=== PATIENT | female | born 1950 | race Caucasian/White ===

== ENCOUNTER 2016-11-07 15:07 | Emergency (ER) ==
[2016-11-07 15:11] VITALS: BP 200/83; TEMP 96.3; BMI 31.5
--- NOTE | 2016-11-07 17:42 | ED.PDOC ---
General ED Provider: Dr. ANN VILLANUEVA Chief Complaint: Fall Stated Complaint: ANKLE PAIN , FOOT PAIN KNEE PAIN LEFT SIDED Time Seen by Physician: 15:10 Mode of Arrival: Walk-In Information Source: Patient Exam Limitations: No limitations Primary Care Provider: SANDI PRINCE Nursing and Triage Documentation Reviewed and Agree: Yes Musculoskeletal Complaint Exam - Lower Extremity Complaint/Exam Location of Pain: Reports: Left, Ankle (, FOOT AND ), Knee Mechanism of Injury: Reports: Trauma (FALL STANDING POSTION) Onset/Duration: 3 DAYS AGO Symptoms Are: Still present Initial Severity: Mild Current Severity: Mild Location: Reports: Diffuse Character: Reports: Dull, Aching Alleviating: Reports: None Aggravating: Reports: None Able to Bear Weight: Yes Associated Signs and Symptoms: Denies: Swelling, Redness, Bruising, Fever, Weakness, Numbness, Tingling Related History: Reports: Similar episode DVT Risk Factors: Reports: None Septic Arthritis Risk Factors: Reports: None Related Surgical History: Reports: None NV Bundle Intact Distal to Injury: No Differential Diagnoses: Arthritis, Fracture, Strain, Sprain Review of Systems - Review Of Systems Constitutional: Reports: No symptoms Eyes: Reports: No symptoms Ears, Nose, Mouth, Throat: Reports: No symptoms Respiratory: Reports: Cough, Wheezing Cardiac: Reports: No symptoms GI: Reports: No symptoms : Reports: No symptoms Musculoskeletal: Reports: No symptoms Skin: Reports: No symptoms Neurological: Reports: No symptoms Endocrine: Reports: No symptoms Hematologic/Lymphatic: Reports: No symptoms All Other Systems: Reviewed and Negative Past Medical History - Past Medical History Previously Healthy: Yes Endocrine: Reports: None, Hyperthyroid Cardiovascular: Reports: None, CAD, Hypertension Respiratory: Reports: None Hematological: Reports: None Gastrointestinal: Reports: None Genitourinary: Reports: None Neuro/Psych: Reports: None Musculoskeletal: Reports: None Cancer: Reports: None Last Menstrual Period: none Other Pertinent Past Medical History: THYROID AND HIP, GALL BLADDER SURGERY htn thy cad - Surgical History General Surgical History: Reports: Cholecystectomy, Orthopedic ( HIP), Other ( THYROID), Unknown - Family History Family History: Reports: Unknown - Social History Smoking Status: Never smoker Hx Substance Use: No Alcohol Screening: None Physical Exam - Physical Exam Appearance: Well-appearing, No pain distress, Well-nourished Eyes: GEORGE, EOMI, Conjunctiva clear ENT: Ears normal, Nose normal, Oropharynx normal Respiratory: Airway patent, Breath sounds clear, Breath sounds equal, Respirations nonlabored Cardiovascular: RRR, Pulses normal, No rub, No murmur GI/: Soft, Nontender, No masses, Bowel sounds normal, No Organomegaly Musculoskeletal: Normal strength, ROM intact, No edema, No calf tenderness Skin: Warm, Dry, Normal color Neurological: Sensation intact, Motor intact, Reflexes intact, Cranial nerves intact, Alert, Oriented Psychiatric: Affect appropriate, Mood appropriate Critical Care Note - Critical Care Note Total Time (mins): 0 Course - Course Orders, Labs, Meds: Orders Category Date Time Status ANKLE, LEFT MIN 3 VIEWS Stat RADS 11/07/16 17:19 Completed FOOT, LEFT 3 VIEWS Stat RADS 11/07/16 17:19 Taken KNEE, LEFT 4 VIEWS Stat RADS 11/07/16 17:19 Completed Vital Signs: Temp Pulse Resp BP Pulse Ox 11/07/16 15:07 96.3 F L 76 18 200/83 H 93 L Departure - Departure Time of Disposition: 18:00 Disposition: HOME SELF-CARE Discharge Problem: Sprain of foot, left, Ankle sprain Instructions: Foot Sprain (ED), Knee Sprain (ED) Condition: Good Pt referred to PMD for follow-up: No Additional Instructions: Please call your Family Physician as soon as possible to schedule a follow-up appointment. Prescriptions: Hydrocodone/Acetaminophen [[place] 5-325 Tablet] 1 each PO Q6HR PRN #12 tablet PRN Reason: PAIN Allergies/Adverse Reactions: Allergies No Known Allergies Allergy (Verified 11/07/16 15:11) Home Medications: Ambulatory Orders Carvedilol [Coreg] 6.25 mg PO BID 04/02/15 Diltiazem HCl [Cartia Xt] 180 mg PO DAILY 04/02/15 Losartan Potassium 100 mg PO DAILY 04/02/15 Ranitidine HCl 150 mg PO BID 04/02/15 Metformin HCl [Fortamet] 500 mg PO BID 06/28/15 Fenofibrate [Triglide] 54 mg PO DAILY 09/28/15 Hydrochlorothiazide [Hydrochlorothiazide] 12.5 mg PO DAILY 09/28/15 Hydrocodone/Acetaminophen [[place] 5-325 Tablet] 1 each PO Q6HR PRN #12 tablet Disposition Discussed With: Patient
--- NOTE | 2016-11-07 17:47 | DI ---
EXAM: Three views of the left ankle HISTORY: Left ankle pain. COMPARISON: None FINDINGS: There is no lytic or blastic lesion of the left ankle. There is no cortical irregularity, displaced fracture or subluxation. There are calcaneal osteophytes present. The tibia articulates normally with the talar dome. There is mild subcutaneous edema present. IMPRESSION: No acute osseous abnormality or displaced fracture of the left ankle is identified.
--- NOTE | 2016-11-07 17:47 | DI ---
EXAM: Four views of the left knee HISTORY: Left knee pain. COMPARISON: None FINDINGS: There is mild medial and lateral compartmental degenerative change and osteophyte formatio n which is most pronounced laterally. There is no lytic or blastic lesion identified. Patellofemor al compartment demonstrates narrowing and osteophyte formation. The soft tissues are unremarkable a s visualized. No displaced fracture or dislocation is identified. 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
--- NOTE | 2016-11-07 18:30 | DI ---
EXAM: Three views of the left foot HISTORY: Left foot pain. COMPARISON: Left ankle x-rays same day FINDINGS: Left foot demonstrates no cortical irregularity or displaced fracture. There is degenerat alec disease of the first MTP joint. The arch is maintained. The joint spaces are maintained. Calc aneal spurs are present. Soft tissues are unremarkable. IMPRESSION: Mild degenerative change of the first MTP joint with no acute osseous abnormality or di splaced fracture.
== END 2016-11-07 18:08 | disposition home or self-care (01) ==
LOC: ED 15:07
DX: S93.402A Sprain of unspecified ligament of left ankle, initial encounter (principal); S93.602A Unspecified sprain of left foot, initial encounter; M25.562 Pain in left knee; W19.XXXA Unspecified fall, initial encounter
CPT/HCPCS: 99283

== ENCOUNTER 2016-12-01 14:13 | Outpatient (CLI) ==
[2016-12-01 14:27] LABS: BASOPHILS # (AUTO) 0.1 K/uL (0-0.2); BASOPHILS % (AUTO) 0.5 % (0.0-3.0); EOSINOPHILS # (AUTO) 0.1 K/ul (0.0-0.7); HEMOGLOBIN 13.5 g/dl (12.0-16.0); IMMATURE GRANULOCYTE % (AUTO) 0.6 % (0.0-5.0); LYMPHOCYTES # (AUTO) 2.5 K/uL (0.60-3.4); MEAN CORPUSCULAR HEMOGLOBIN 29.7 pg (27.0-31.0); MEAN CORPUSCULAR HGB CONC 32.9 (31.8-35.4); MEAN CORPUSCULAR VOLUME 90.3 fl (81.0-99.0); MONOCYTES # (AUTO) 0.8 K/uL (0.4-2.0); MONOCYTES % (AUTO) 7.5 (0-10); NEUTROPHILS # (AUTO) 7.3 K/ul (2.0-6.9); NEUTROPHILS % (AUTO) 67.4; PLATELET COUNT 239 10^3/uL (140-440); RED BLOOD COUNT 4.54 10^6/ul (4.20-5.40); WHITE BLOOD COUNT 10.86 K/ul (4.6-10.2)
[2016-12-01 14:43] LABS: FLU INTERNAL QC INTERNAL QC VALID; RAPID FLU A NEGATIVE (NEGATIVE); RAPID FLU B NEGATIVE (NEGATIVE)
[2016-12-01 15:07] LABS: ALBUMIN 3.8 g/dL (3.4-5.0); ALBUMIN/GLOBULIN RATIO 1.03; ANION GAP 13.7; BILIRUBIN,TOTAL 0.44 mg/dL (0.00-1.20); BUN/CREATININE RATIO 26.5; CALCIUM 9.6 mg/dL (8.2-10.2); CHOL/HDL RATIO 3.7 (4.5-5.5); CREATININE 0.83 mg/dL (0.60-1.30); POTASSIUM 4.7 mmol/L (3.5-5.10); TOTAL PROTEIN 7.5 g/dL (5.8-8.1)
[2016-12-01 15:16] LABS: BILIRUBIN,URINE Negative (NEGATIVE); KETONES,URINE Negative (NEGATIVE); LEUKOCYTE ESTERASE ,URINE 1+ (NEGATIVE); NITRITE,URINE Negative (NEGATIVE); PROTEIN,URINE Trace (NEGATIVE); URINE, BLOOD Trace-intact (NEGATIVE)
[2016-12-01 15:25] LABS: ADD URINE MICROSCOPIC YES
[2016-12-01 15:30] LABS: BACTERIA,URINE 1+ (NOT PRESENT)
== END 2016-12-01 14:14 | disposition home or self-care (01) ==
LOC: LAB 14:13
PROVIDERS: ATTEND Family Medicine
DX: J02.9 Acute pharyngitis, unspecified (principal); I10 Essential (primary) hypertension; E11.9 Type 2 diabetes mellitus without complications; E78.5 Hyperlipidemia, unspecified; I25.10 Atherosclerotic heart disease of native coronary artery without angina pectoris; I50.30 Unspecified diastolic (congestive) heart failure; Z87.440 Personal history of urinary (tract) infections
CPT/HCPCS: 36415; 80053; 80061; 81001; 83036; 84439; 84443; 85025; 87086; 87651; 87804; 87880

== ENCOUNTER 2016-12-06 09:42 | Outpatient (CLI) ==
[2016-12-06 10:01] LABS: BILIRUBIN,URINE Negative (NEGATIVE); KETONES,URINE Negative (NEGATIVE); LEUKOCYTE ESTERASE ,URINE 3+ (NEGATIVE); NITRITE,URINE Negative (NEGATIVE); PROTEIN,URINE 1+ (NEGATIVE); URINE, BLOOD Trace-intact (NEGATIVE)
[2016-12-06 10:04] LABS: ADD URINE MICROSCOPIC YES; BACTERIA,URINE 1+ (NOT PRESENT)
== END 2016-12-06 09:43 | disposition home or self-care (01) ==
LOC: LAB 09:42
PROVIDERS: ATTEND Family Medicine
DX: N39.0 Urinary tract infection, site not specified (principal)
CPT/HCPCS: 81001; 87086

== ENCOUNTER 2017-01-04 10:53 | Outpatient (CLI) ==
[2017-01-04 11:09] LABS: BILIRUBIN,URINE Negative (NEGATIVE); KETONES,URINE Negative (NEGATIVE); LEUKOCYTE ESTERASE ,URINE 2+ (NEGATIVE); NITRITE,URINE Negative (NEGATIVE); PH,URINE 5.5 (5-9); PROTEIN,URINE Negative (NEGATIVE); URINE, BLOOD Trace-lysed (NEGATIVE)
[2017-01-04 11:12] LABS: ADD URINE MICROSCOPIC YES; BACTERIA,URINE TRACE (NOT PRESENT)
--- NOTE | 2017-01-05 10:47 | MAMMO ---
EXAM: Bilateral digital screening mammogram History: Screening Comparison: Bilateral mammogram 12/29/2015 Findings: MLO and CC views of bilateral breasts demonstrate predominately fatty replaced breast par enchyma. Stable benign bilateral breast calcifications. There are no dominant masses, no suspiciou s microcalcifications and no architectural distortions Impression: Benign stable mammogram. Recommend followup routine screening mammography in 1 year. BIRADS 2
== END 2017-01-04 10:54 | disposition home or self-care (01) ==
LOC: RAD 10:53
PROVIDERS: ATTEND Family Medicine
DX: Z12.31 Encounter for screening mammogram for malignant neoplasm of breast (principal); N39.0 Urinary tract infection, site not specified
CPT/HCPCS: 81001; 87086

== ENCOUNTER 2017-01-05 12:02 | Outpatient (CLI) | END 2017-01-05 12:03 | disposition home or self-care (01) | LOC: LAB 12:02 | PROVIDERS: ATTEND Family Medicine | DX: J02.9 Acute pharyngitis, unspecified (principal) | CPT/HCPCS: 87651; 87880 ==

== ENCOUNTER 2017-01-19 08:30 | Outpatient (CLI) ==
[2017-01-19 09:12] LABS: BILIRUBIN,URINE Negative (NEGATIVE); KETONES,URINE Negative (NEGATIVE); LEUKOCYTE ESTERASE ,URINE 3+ (NEGATIVE); NITRITE,URINE Negative (NEGATIVE); PROTEIN,URINE Negative (NEGATIVE); URINE, BLOOD Negative (NEGATIVE)
[2017-01-19 09:13] LABS: ADD URINE MICROSCOPIC YES
[2017-01-19 09:18] LABS: BACTERIA,URINE 1+ (NOT PRESENT)
== END 2017-01-19 08:31 | disposition home or self-care (01) ==
LOC: LAB 08:30
PROVIDERS: ATTEND Family Medicine
DX: R82.90 Unspecified abnormal findings in urine (principal); Z87.440 Personal history of urinary (tract) infections
CPT/HCPCS: 81001; 87086; 87186

== ENCOUNTER 2017-02-07 14:22 | Outpatient (CLI) ==
[2017-02-07 14:36] LABS: BILIRUBIN,URINE Negative (NEGATIVE); KETONES,URINE Negative (NEGATIVE); LEUKOCYTE ESTERASE ,URINE 1+ (NEGATIVE); NITRITE,URINE Negative (NEGATIVE); PH,URINE 5.5 (5-9); PROTEIN,URINE Negative (NEGATIVE); URINE, BLOOD Trace-lysed (NEGATIVE)
[2017-02-07 14:40] LABS: ADD URINE MICROSCOPIC YES
[2017-02-07 14:41] LABS: BACTERIA,URINE TRACE (NOT PRESENT)
== END 2017-02-07 14:23 | disposition home or self-care (01) ==
LOC: LAB 14:22
PROVIDERS: ATTEND Family Medicine
DX: N39.0 Urinary tract infection, site not specified (principal)
CPT/HCPCS: 81001

== ENCOUNTER 2017-04-22 08:25 | Outpatient (CLI) ==
[2017-04-22 08:53] LABS: BILIRUBIN,URINE Negative (NEGATIVE); KETONES,URINE Negative (NEGATIVE); LEUKOCYTE ESTERASE ,URINE 3+ (NEGATIVE); NITRITE,URINE Negative (NEGATIVE); PROTEIN,URINE Trace (NEGATIVE); URINE, BLOOD Trace-lysed (NEGATIVE)
[2017-04-22 08:54] LABS: ADD URINE MICROSCOPIC YES
[2017-04-22 08:55] LABS: BACTERIA,URINE 1+ (NOT PRESENT)
== END 2017-04-22 08:26 | disposition home or self-care (01) ==
LOC: LAB 08:25
PROVIDERS: ATTEND Family Medicine
DX: N30.00 Acute cystitis without hematuria (principal)
CPT/HCPCS: 81001; 87086

== ENCOUNTER 2017-05-12 08:32 | Outpatient (CLI) ==
[2017-05-12 08:45] LABS: BASOPHILS % (AUTO) 0.5 % (0.0-3.0); EOSINOPHILS # (AUTO) 0.1 K/ul (0.0-0.7); EOSINOPHILS % (AUTO) 1.5 % (0.0-7.0); HEMATOCRIT 40.3 % (37.0-47.0); HEMOGLOBIN 13.4 g/dl (12.0-16.0); IMMATURE GRANULOCYTE % (AUTO) 0.5 % (0.0-5.0); LYMPHOCYTES % (AUTO) 23.7 (10.0-50.0); MEAN CORPUSCULAR HEMOGLOBIN 29.5 pg (27.0-31.0); MEAN CORPUSCULAR HGB CONC 33.3 (31.8-35.4); MEAN CORPUSCULAR VOLUME 88.8 fl (81.0-99.0); MONOCYTES # (AUTO) 0.7 K/uL (0.4-2.0); MONOCYTES % (AUTO) 8.3 (0-10); NEUTROPHILS # (AUTO) 5.6 K/ul (2.0-6.9); NEUTROPHILS % (AUTO) 65.5; PLATELET COUNT 235 10^3/uL (140-440); RED BLOOD COUNT 4.54 10^6/ul (4.20-5.40); WHITE BLOOD COUNT 8.52 K/ul (4.6-10.2)
[2017-05-12 09:07] LABS: ALBUMIN 3.8 g/dL (3.4-5.0); ALBUMIN/GLOBULIN RATIO 1.06; ANION GAP 14.4; BILIRUBIN,TOTAL 0.53 mg/dL (0.00-1.20); BUN/CREATININE RATIO 33.72; CALCIUM 10.1 mg/dL (8.2-10.2); CHOL/HDL RATIO 3.8 (4.5-5.5); CREATININE 0.86 mg/dL (0.60-1.30); POTASSIUM 4.4 mmol/L (3.5-5.10); TOTAL PROTEIN 7.4 g/dL (5.8-8.1)
== END 2017-05-12 08:33 | disposition home or self-care (01) ==
LOC: LAB 08:32
PROVIDERS: ATTEND Family Medicine
DX: E78.5 Hyperlipidemia, unspecified (principal); I10 Essential (primary) hypertension; E11.9 Type 2 diabetes mellitus without complications; I25.10 Atherosclerotic heart disease of native coronary artery without angina pectoris; Z79.899 Other long term (current) drug therapy
CPT/HCPCS: 36415; 80053; 80061; 83036; 85025

== ENCOUNTER 2017-10-19 08:15 | Outpatient (CLI) | END 2017-10-19 08:16 | disposition home or self-care (01) | LOC: CAR 08:15 | PROVIDERS: ATTEND Family Medicine | DX: R60.0 Localized edema (principal); I50.9 Heart failure, unspecified; E11.9 Type 2 diabetes mellitus without complications; I10 Essential (primary) hypertension; I25.10 Atherosclerotic heart disease of native coronary artery without angina pectoris | CPT/HCPCS: 93005; 93010 ==

== ENCOUNTER 2017-12-05 08:57 | Outpatient (CLI) | END 2017-12-05 08:58 | disposition home or self-care (01) | LOC: LAB 08:57 | PROVIDERS: ATTEND Family Medicine | DX: E78.5 Hyperlipidemia, unspecified (principal); I10 Essential (primary) hypertension; E11.9 Type 2 diabetes mellitus without complications; K76.0 Fatty (change of) liver, not elsewhere classified; Z79.899 Other long term (current) drug therapy | CPT/HCPCS: 36415; 80053; 80061; 81001; 83036; 85025 ==

== ENCOUNTER 2017-12-26 09:08 | Outpatient (CLI) | END 2017-12-26 09:09 | disposition home or self-care (01) | LOC: LAB 09:08 | PROVIDERS: ATTEND Family Medicine | DX: E11.9 Type 2 diabetes mellitus without complications (principal); E78.5 Hyperlipidemia, unspecified; I10 Essential (primary) hypertension; I25.10 Atherosclerotic heart disease of native coronary artery without angina pectoris; I67.9 Cerebrovascular disease, unspecified | CPT/HCPCS: 36415; 80053; 80061; 81001; 83036; 83880; 85025; 87086 ==

== ENCOUNTER 2018-03-01 08:19 | Outpatient (CLI) | END 2018-03-01 08:20 | disposition home or self-care (01) | LOC: LAB 08:19 | PROVIDERS: ATTEND Family Medicine | DX: E78.5 Hyperlipidemia, unspecified (principal); E11.9 Type 2 diabetes mellitus without complications; I10 Essential (primary) hypertension; K76.0 Fatty (change of) liver, not elsewhere classified; Z79.899 Other long term (current) drug therapy; Z87.440 Personal history of urinary (tract) infections | CPT/HCPCS: 36415; 80053; 80061; 81001; 83036; 85025 ==

== ENCOUNTER 2018-03-08 14:57 | Outpatient (CLI) ==
--- NOTE | 2018-03-08 15:43 | DI ---
EXAM: Chest two views HISTORY: Cough COMPARISON: 09/28/2015 TECHNIQUE: Two views of the chest were performed FINDINGS: No airspace consolidation. Granulomatous calcification. There is no pleural effusion or pneumothorax. The heart is normal in size. The mediastinal contour is normal, noting atherosclerosi s. Mild age indeterminate compression deformity of a mid to lower thoracic vertebral body. IMPRESSION: 1. No acute cardiopulmonary process. 2. Mild age indeterminate compression deformity of a mid to lower thoracic vertebral body.
== END 2018-03-08 14:58 | disposition home or self-care (01) ==
LOC: LAB 14:57
PROVIDERS: ATTEND Family Medicine
DX: J02.9 Acute pharyngitis, unspecified (principal); J06.9 Acute upper respiratory infection, unspecified; R50.9 Fever, unspecified; R05 Cough; R07.9 Chest pain, unspecified
CPT/HCPCS: 36415; 80053; 85025; 87651

== ENCOUNTER 2018-05-19 08:36 | Outpatient (CLI) | END 2018-05-19 08:37 | disposition home or self-care (01) | LOC: LAB 08:36 | PROVIDERS: ATTEND Family Medicine | DX: E78.5 Hyperlipidemia, unspecified (principal); I10 Essential (primary) hypertension; E11.9 Type 2 diabetes mellitus without complications; K76.0 Fatty (change of) liver, not elsewhere classified; Z79.899 Other long term (current) drug therapy | CPT/HCPCS: 36415; 80053; 80061; 81001; 83036; 85025 ==

== ENCOUNTER 2018-09-25 13:35 | Outpatient (CLI) | END 2018-09-25 13:36 | disposition home or self-care (01) | LOC: LAB 13:35 | PROVIDERS: ATTEND Family Medicine | DX: J02.9 Acute pharyngitis, unspecified (principal); R50.9 Fever, unspecified | CPT/HCPCS: 87651 ==

== ENCOUNTER 2019-03-18 10:48 | Emergency (ER) ==
[2019-03-18 10:54] VITALS: BP 117/67; TEMP 98.1; BMI 33.9
--- NOTE | 2019-03-18 11:23 | ED.PDOC ---
Medical Screening Exam - General Information Time Seen by Physician*: 11:20 Mode of Arrival: Walk-In Information Source: Patient - History Chief Complaint: Medication Refill Stated Complaint: ? refill,b ut not out of meds yet Severity: None - Review Of Systems Constitutional: None CV: Reports: None Respiratory: Reports: None GI: Reports: None : Reports: None Musculoskeletal: Reports: None Neuro: Reports: None - Examination Findings Visit Related to : No - Medical Decision Making Emergency Medical Condition: No Physical Exam - Physical Exam Appearance: Well-appearing, No pain distress, Well-nourished, Obese Eyes: GEORGE, EOMI, Conjunctiva clear ENT: Ears normal, Nose normal, Oropharynx normal Respiratory: Airway patent, Breath sounds clear, Breath sounds equal, Respirations nonlabored Cardiovascular: RRR, Pulses normal, No rub, No murmur GI/: Soft, Nontender, No masses, Bowel sounds normal, No Organomegaly Musculoskeletal: Normal strength, ROM intact, No edema, No calf tenderness Skin: Warm, Dry, Normal color Neurological: Sensation intact, Motor intact, Reflexes intact, Cranial nerves intact, Alert, Oriented Psychiatric: Affect appropriate, Mood appropriate Critical Care Note - Critical Care Note Total Time (mins): 0 Course - Course Vital Signs: Temp Pulse Resp BP Pulse Ox 03/18/19 10:48 98.1 F 66 16 117/67 92 L Departure - Departure Time of Disposition: 11:25 Disposition: HOME SELF-CARE Discharge Problem: Encounter for medical screening examination Condition: Good Pt referred to PMD for follow-up: Yes IPMP verified?: No Additional Instructions: call PCP tomorrow for refills Allergies/Adverse Reactions: Allergies No Known Allergies Allergy (Verified 03/18/19 11:06) Home Medications: Ambulatory Orders Carvedilol [Coreg] 12.5 mg PO BID 04/02/15 Diltiazem HCl [Cartia Xt] 180 mg PO DAILY 04/02/15 Losartan Potassium 100 mg PO DAILY 04/02/15 Ranitidine HCl 150 mg PO BID 04/02/15 Metformin HCl [Fortamet] 500 mg PO BID 06/28/15 Hydrochlorothiazide 12.5 mg PO DAILY 09/28/15 Transfer Form Completed: No
== END 2019-03-18 11:29 | disposition home or self-care (01) ==
LOC: ED 10:48
DX: Z76.0 Encounter for issue of repeat prescription (principal); Z00.00 Encounter for general adult medical examination without abnormal findings
CPT/HCPCS: 99281

== ENCOUNTER 2019-10-23 12:05 | Observation (INO) ==
--- NOTE | 2019-10-23 13:12 | ED.PDOC ---
General ED Provider: Dr. ROBERT CHAN Chief Complaint: Knee Pain/Injury Stated Complaint: Fell yesterday injuring lt knee. Swelling and painful Time Seen by Physician: 12:50 Mode of Arrival: Wheelchair Information Source: Patient Exam Limitations: No limitations Primary Care Provider: ROSMERY VALENCIA Nursing and Triage Documentation Reviewed and Agree: Yes Does patient meet sepsis criteria?: No System Inflammatory Response Syndrome: Not Applicable Sepsis Protocol: For patient's 13 years and over: Temp is 96.8 and below OR 101 and greater Pulse >90 BPM Resp >20/minute Acutely Altered Mental Status Are patient's symptoms suggestive of a new infection, such as: -Pneumonia -Skin, Soft Tissue -Endocarditis -UTI -Bone, Joint Infection -Implantable Device -Acute Abdominal Infection -Wound Infection -Meningitis -Blood Stream Catheter Infection -Unknown Musculoskeletal Complaint Exam Knee Pain Complaint/Exam Mechanism of Injury: Reports Trauma (Falling episode) Onset/Duration: 24 hrs Symptoms Are: Still present Onset of Pain: Reports Immediate Initial Severity: Moderate Location: Reports Diffuse Character: Reports Sharp, Aching, Spasmodic and Stiffness Alleviating: Reports Rest Aggravating: Reports Movement Associated Signs and Symptoms: Reports Swelling Able to Bear Weight: Yes Related History: Denies Similar episode Septic Arthritis Risk Factors: Reports None Gout Risk Factors: Reports None Related Surgical History: Denies Right Knee, Left Knee and Other Orthopedic Surgery Knee Findings: Present Swelling and Warmth Tenderness: Present Pre-patellar Yanira Test Positive: No Sylvain Test Positive: No Limited Range of Motion: Present Active and Passive Differential Diagnoses: Strain Review of Systems Review Of Systems Constitutional: Reports No symptoms Eyes: Reports No symptoms Ears, Nose, Mouth, Throat: Reports No symptoms Respiratory: Reports No symptoms Cardiac: Reports No symptoms GI: Reports No symptoms and Diarrhea : Reports No symptoms Musculoskeletal: Reports No symptoms Skin: Reports No symptoms Neurological: Reports No symptoms Endocrine: Reports No symptoms Hematologic/Lymphatic: Reports No symptoms All Other Systems: Reviewed and Negative [facility] Medical History (Updated 10/24/19 @ 16:00 by BHARATH MALCOLM) Aortic stenosis, severe (Chronic) Helicobacter pylori infection Hyperlipidemia (Acute) Hypertension (Chronic) Morbid obesity (Acute) Tricuspid valve regurgitation (Chronic) Type 2 diabetes mellitus (Chronic) Family History (Updated 10/24/19 @ 09:02 by BHARATH MALCOLM) Mother Cerebrovascular accident Father Cancer BROTHER Diabetes Hypertension Social History Smoking and tobacco status: Former smoker Substance use type: does not use Female Reproductive History Menstrual Hx Hysterectomy: No Hx Tubal Ligation: No Physical Exam Physical Exam Appearance: Reports Well-appearing and Obese Ill-appearing: None Pain Distress: Mild Eyes: Reports GEORGE, EOMI and Conjunctiva clear ENT: Reports Ears normal, Nose normal and Oropharynx normal Respiratory: Reports Airway patent, Breath sounds clear, Breath sounds equal and Respirations nonlabored Cardiovascular: Reports RRR, Pulses normal, No rub and No murmur GI/: Reports Soft, Nontender, No masses, Bowel sounds normal and No Or ganomegaly Musculoskeletal: Reports Normal strength, No edema, No calf tenderness and Limited ROM (Lt Knee) Skin: Reports Warm, Dry and Normal color Neurological: Reports Sensation intact, Motor intact, Reflexes intact, Cranial nerves intact, Alert and Oriented Psychiatric: Reports Affect appropriate and Mood appropriate Interpretation Radiology Interpretation Radiology Interpretation By: Radiologist Radiology Results: No acute changes (No acute fracture. Tricompartmental arthritis) EKG Interpretation Time of EKG #1: 17:17 Rate: Normal Rhythm: Sinus Ectopy: None [place]: Left ST Segment: Normal Interpretation: [facility] Critical Care Note Critical Care Note Total Time (mins): 60 Course Course Hematology/Chemistry: 10/25/19 04:46 10/25/19 04:46 Orders, Labs, Meds: Lab Review 10/23/19 10/23/19 10/23/19 13:54 14:04 14:04 WBC 13.45 H RBC 4.13 L Hgb 12.6 Hct 38.3 MCV 92.7 MCH 30.5 MCHC 32.9 RDW Coeff of Guzman 13.7 Plt Count 203 Immature Gran % (Auto) 0.4 Neut % (Auto) 86.2 H Lymph % (Auto) 7.7 L Bibb % (Auto) 4.6 Eos % (Auto) 0.8 Baso % (Auto) 0.3 Immature Gran # (Auto) 0.1 Neut # (Auto) 11.6 H Lymph # (Auto) 1.0 Bibb # (Auto) 0.6 Eos # (Auto) 0.1 Baso # (Auto) 0.0 Puncture Site Rr O2 Saturation 89.0 L ABG pH 7.451 H ABG pCO2 44.2 ABG pO2 55.0 L* ABG HCO3 30.8 H ABG Total CO2 32 H ABG Base Excess 7 H Viktor Test + FiO2 % 21.0 Sodium 138.7 Potassium 3.87 Chloride 99.7 Carbon Dioxide 32.9 H Anion Gap 9.97 BUN 28.0 H Creatinine 1.03 Estimated GFR (MDRD) 53.00 BUN/Creatinine Ratio 27.18 Glucose 138.9 H Hemoglobin A1c Calcium 9.04 Total Bilirubin 1.12 AST 25.5 ALT 15.5 Alkaline Phosphatase 91.9 Total Protein 6.55 Albumin 3.65 Globulin 2.90 Albumin/Globulin Ratio 1.25 10/23/19 14:04 WBC RBC Hgb Hct MCV MCH MCHC RDW Coeff of Guzman Plt Count Immature Gran % (Auto) Neut % (Auto) Lymph % (Auto) Bibb % (Auto) Eos % (Auto) Baso % (Auto) Immature Gran # (Auto) Neut # (Auto) Lymph # (Auto) Bibb # (Auto) Eos # (Auto) Baso # (Auto) Puncture Site O2 Saturation ABG pH ABG pCO2 ABG pO2 ABG HCO3 ABG Total CO2 ABG Base Excess Viktor Test FiO2 % Sodium Potassium Chloride Carbon Dioxide Anion Gap BUN Creatinine Estimated GFR (MDRD) BUN/Creatinine Ratio Glucose Hemoglobin A1c 7.06 H Calcium Total Bilirubin AST ALT Alkaline Phosphatase Total Protein Albumin Globulin Albumin/Globulin Ratio Orders Category Date Time Status ADMIT OBSERVATION [PLACE PATIENT OBSERVATION] .TO ADMISSION 10/23/19 17:47 Active MEDSURG (MONITORED BED) ABG DRAW REQUEST Stat CARDIO 10/23/19 13:54 Completed EKG-(ED ONLY) Stat CARDIO 10/23/19 16:47 Completed TELEMETRY MONITORING TELE CARE 10/23/19 17:49 Active ABG Stat LAB 10/23/19 13:54 Completed CBC W/ AUTO DIFF Stat LAB 10/23/19 14:04 Completed CMP [COMPREHENSIVE METABOLIC PANEL] Stat LAB 10/23/19 14:04 Completed Diphenoxylate HCl/Atropine [Lomotil] MEDS 10/23/19 16:55 Discontinued 1 tab PO ONCE STA CHEST, 1V AP ONLY Stat RADS 10/23/19 14:27 Completed KNEE, LEFT 4 VIEWS Stat RADS 10/23/19 12:58 Completed Medications Discontinued Medications Generic Name Dose Route Start Last Admin Trade Name Freq PRN Reason Stop Dose Admin Atorvastatin Calcium 20 mg 10/24/19 21:00 10/25/19 08:55 Lipitor PO 20 mg DAILY DEBBY Administration Carvedilol 12.5 mg 10/23/19 21:00 10/23/19 22:47 Coreg PO Not Given BID DEBBY Carvedilol 12.5 mg 10/23/19 22:30 10/23/19 22:48 Coreg PO 12.5 mg BID DEBBY Administration Carvedilol 12.5 mg 10/24/19 08:00 10/25/19 08:55 Coreg PO 12.5 mg BIDWM DEBBY Administration Diltiazem HCl 180 mg 10/24/19 09:00 Cardizem Cd PO DAILY DEBBY Diltiazem HCl 180 mg 10/24/19 09:00 10/25/19 08:55 Cardizem Cd PO 180 mg DAILY DEBBY Administration Diphenoxylate HCl/Atropine 1 tab 10/23/19 16:55 10/23/19 17:02 Lomotil PO 10/23/19 16:56 1 tab ONCE STA Administration Enoxaparin Sodium 40 mg 10/23/19 18:30 10/25/19 08:56 Lovenox SUBCUT 40 mg DAILY DEBBY Administration Furosemide 20 mg 10/23/19 18:25 10/23/19 22:48 Lasix Tab PO 10/23/19 18:26 20 mg ONCE ONE Administration Furosemide 20 mg 10/23/19 22:30 10/23/19 22:49 Lasix Tab PO 10/23/19 22:31 Not Given ONCE ONE Gabapentin 300 mg 10/25/19 09:00 10/25/19 08:54 Neurontin PO 300 mg DAILY DEBBY Administration Hydrochlorothiazide 12.5 mg 10/24/19 09:00 10/24/19 08:48 Hydrochlorothiazide PO 12.5 mg DAILY DEBBY Administration Hydrochlorothiazide 25 mg 10/25/19 09:00 10/25/19 08:54 Hydrochlorothiazide PO 25 mg DAILY DEBBY Administration Sodium Chloride 1,000 mls @ 1,000 mls/hr 10/25/19 13:45 10/25/19 13:49 Sodium Chloride IV 10/25/19 14:44 1,000 mls/hr ONCE ONE Administration Losartan Potassium 100 mg 10/24/19 09:00 Cozaar PO DAILY DBEBY Losartan Potassium 100 mg 10/24/19 09:00 10/25/19 08:55 Cozaar PO 100 mg DAILY DEBBY Administration Metformin HCl 500 mg 10/23/19 22:30 10/23/19 22:48 Glucophage PO 500 mg BID DEBBY Administration Metformin HCl 500 mg 10/24/19 08:00 10/25/19 08:56 Glucophage PO 500 mg BIDWM DEBBY Administration Non-Formulary Medication 12.5 mg 10/24/19 09:00 Hydrochlorothiazide PO DAILY DEBBY Non-Formulary Medication 500 mg 10/23/19 21:00 10/23/19 22:57 Metformin [Fortamet] PO Not Given BID DEBBY Non-Formulary Medication 150 mg 10/23/19 21:00 10/23/19 22:21 Ranitidine Hcl PO Not Given BID DEBBY Non-Formulary Medication 150 mg 10/24/19 08:00 10/25/19 05:33 Ranitidine Hcl PO 150 mg BIDAC DEBBY Administration Sitagliptin Phosphate 100 mg 10/24/19 09:30 10/25/19 08:54 Januvia PO 100 mg DAILYWM DEBBY Administration Sodium Chloride 1 syr 10/24/19 21:00 10/25/19 12:14 Saline Flush IVF 1 syr Q8HR DEBBY Administration Vital Signs: Temp Pulse Resp BP Pulse Ox 10/23/19 13:49 98.7 F 66 24 95/36 L 87 L 10/23/19 12:07 100.0 F H 68 20 118/62 90 L Discharge Plan Discharge Patient Disposition: PLACED OBSERVATION Discharge Problem: Pulmonary edema, Aortic stenosis, severe, Gastroenteritis, Arthritis of knee, right Tricuspid valve regurgitation Qualifiers: Cardiac valve disease etiology: etiology unspecified Qualified Code(s): I07.1 - Rheumatic tricuspid insufficiency ED Provider: ROBERT CHAN Condition: Stable Discharge Date/Time: 10/23/19 19:41 Additional Information: Contacted PCP reg my findings inquuring about PMh Recommmedn 23 OBS for eval cardiac/pulmonary status Expressed concern to hospitalist .will admit
--- NOTE | 2019-10-23 13:20 | DI ---
EXAM: Four views left knee HISTORY: Recent injury, pain COMPARISON: 11/07/2016 FINDINGS: No fracture. Normal alignment. No aggressive osseous lesion. Tricompartmental osteoarthrit is, moderate in the medial and patellofemoral compartments Small joint effusion IMPERSSION: 1. No acute fracture. 2. Tricompartmental osteoarthritis. 3. Nonspecific small joint effusion.
[2019-10-23 14:08] LABS: HEMATOCRIT 38.3 % (37.0-47.0)
--- NOTE | 2019-10-23 14:48 | DI ---
EXAM: Chest one view HISTORY: The imaged oxygen saturation COMPARISON: 03/08/2018 TECHNIQUE: Single view of the chest was performed FINDINGS: Bilateral interstitial prominence. Granulomas calcification There is no pleural effusion or pneumothorax. The heart is enlarged in size. The mediastinal contour is normal, noting atherosc lerosis. There are no acute abnormalities of the bones. IMPRESSION: Cardiomegaly. Bilateral interstitial prominence may represent interstitial edema or inte rstitial pneumonitis
[2019-10-23] MEDS ORDERED: LOMOTIL PO STA (16:55)
[2019-10-23] MEDS ORDERED: LASIX TAB PO ONE ×2 (18:25→22:30)
[2019-10-23] MEDS ORDERED: METFORMIN 500 MG PO SCH (21:00)
[2019-10-23] MEDS ORDERED: NON-FORMULARY MEDICATION (Ranitidine Hcl 150 MG) PO SCH (21:00)
[2019-10-23] MEDS ORDERED: COREG PO SCH ×2 (21:00→22:30)
[2019-10-23] MEDS ORDERED: GLUCOPHAGE PO SCH (22:30)
[2019-10-23] MEDS: LOVENOX SUBCUT SCH (22:43)
--- NOTE | 2019-10-24 08:26 | PCM ---
Allergies Allergies Allergy/AdvReac Type Severity Reaction Status Date / Time No Known Allergies Allergy Verified 10/23/19 17:39 PFSH Medical History Helicobacter pylori infection Hypertension Family History Mother Cerebrovascular accident Father Cancer Social History Smoking and tobacco status: Former smoker Substance use type: does not use Medications Medications: Medications Generic Name Dose Route Start Last Admin Trade Name Freq PRN Reason Stop Dose Admin Carvedilol 12.5 mg 10/24/19 08:00 Coreg PO BIDWM [facility] Diltiazem HCl 180 mg 10/24/19 09:00 Cardizem Cd PO DAILY [facility] Enoxaparin Sodium 40 mg 10/23/19 18:30 10/23/19 22:43 Lovenox SUBCUT 40 mg DAILY [facility] Administration Hydrochlorothiazide 12.5 mg 10/24/19 09:00 Hydrochlorothiazide PO DAILY [facility] Losartan Potassium 100 mg 10/24/19 09:00 Cozaar PO DAILY [facility] Metformin HCl 500 mg 10/24/19 08:00 Glucophage PO BIDWM [facility] Non-Formulary Medication 150 mg 10/24/19 08:00 Ranitidine Hcl PO BIDAC [facility] Body Composition Height: 5 ft 4 in Weight: 223 lb 12.307 oz Body Mass Index (BMI): 38.7 Vital Signs Temperature: 98.5 F Pulse Rate: 73 Respiratory Rate: 16 Blood Pressure: 100/51 O2 Sat by Pulse Oximetry: 96 Lab/Tests/Diagnostic Imaging Lab/Tests/Diagnostic Imaging: Lab Review 10/23/19 10/23/19 10/23/19 13:54 14:04 14:04 WBC 13.45 H RBC 4.13 L Hgb 12.6 Hct 38.3 MCV 92.7 MCH 30.5 MCHC 32.9 RDW Coeff of Guzman 13.7 Plt Count 203 Immature Gran % (Auto) 0.4 Neut % (Auto) 86.2 H Lymph % (Auto) 7.7 L [place] % (Auto) 4.6 Eos % (Auto) 0.8 Baso % (Auto) 0.3 Immature Gran # (Auto) 0.1 Neut # (Auto) 11.6 H Lymph # (Auto) 1.0 J[place] # (Auto) 0.6 Eos # (Auto) 0.1 Baso # (Auto) 0.0 Puncture Site Rr O2 Saturation 89.0 L ABG pH 7.451 H ABG pCO2 44.2 ABG pO2 55.0 L* ABG HCO3 30.8 H ABG Total CO2 32 H ABG Base Excess 7 H Viktor Test + FiO2 % 21.0 Sodium 138.7 Potassium 3.87 Chloride 99.7 Carbon Dioxide 32.9 H Anion Gap 9.97 BUN 28.0 H Creatinine 1.03 Estimated GFR (MDRD) 53.00 BUN/Creatinine Ratio 27.18 Glucose 138.9 H Hemoglobin A1c Calcium 9.04 Total Bilirubin 1.12 AST 25.5 ALT 15.5 Alkaline Phosphatase 91.9 NT-Pro-B Natriuret Pep Total Protein 6.55 Albumin 3.65 Globulin 2.90 Albumin/Globulin Ratio 1.25 10/23/19 10/24/19 14:04 04:00 WBC RBC Hgb Hct MCV MCH MCHC RDW Coeff of Guzman Plt Count Immature Gran % (Auto) Neut % (Auto) Lymph % (Auto) J[place] % (Auto) Eos % (Auto) Baso % (Auto) Immature Gran # (Auto) Neut # (Auto) Lymph # (Auto) J[place]uld # (Auto) Eos # (Auto) Baso # (Auto) Puncture Site O2 Saturation ABG pH ABG pCO2 ABG pO2 ABG HCO3 ABG Total CO2 ABG Base Excess Viktor Test FiO2 % Sodium 137.0 Potassium 3.56 Chloride 97.1 L Carbon Dioxide 34.4 H Anion Gap 9.06 BUN 31.5 H Creatinine 1.15 Estimated GFR (MDRD) 47.00 BUN/Creatinine Ratio 27.39 Glucose 139.0 H Hemoglobin A1c 7.06 H Calcium 8.69 Total Bilirubin AST ALT Alkaline Phosphatase NT-Pro-B Natriuret Pep 391.000 H Total Protein Albumin Globulin Albumin/Globulin Ratio 10/23/19 CXR IMPRESSION: Cardiomegaly. Bilateral interstitial prominence may represent interstitial edema or interstitial pneumonitis. Orders Category Date Time Status ADMIT OBSERVATION [PLACE PATIENT OBSERVATION] .TO ADMISSION 10/23/19 17:47 Active MEDSURG (MONITORED BED) ABG DRAW REQUEST Stat CARDIO 10/23/19 13:54 Completed ECHOCARDIOGRAM 2D-M MODE Routine CARDIO 10/23/19 18:21 Ordered EKG-(ED ONLY) Stat CARDIO 10/23/19 16:47 Completed OXYGEN Routine CARDIO 10/23/19 18:21 Active ACTIVITY .BR with BRP CARE 10/23/19 18:21 Active BLOOD GLUCOSE MONITORING 0630,1100,1700,2100 CARE 10/23/19 18:28 Active C-DIFF MONITORING (NURSING) BID CARE 10/23/19 18:27 Active GIVE HS SNACK 2100 CARE 10/23/19 18:22 Active INTAKE & OUTPUT Q8HR CARE 10/23/19 18:21 Active [place] SCREEN .PRN CARE 10/23/19 19:59 Active TELEMETRY MONITORING TELE CARE 10/23/19 17:49 Active VITAL SIGNS Q4HR CARE 10/23/19 18:21 Active VTE PREVENTION .SCD 24 Hours CARE 10/23/19 12:09 Active WEIGH PATIENT 0600 CARE 10/23/19 18:48 Active CLEAR LIQUID DIET DIETARY 10/23/19 Dinner Ordered HS SNACK DIETARY 10/23/19 Dinner Ordered ABG Stat LAB 10/23/19 13:54 Completed BASIC METABOLIC PANEL DAILY@0600 LAB 10/24/19 04:00 Completed BASIC METABOLIC PANEL DAILY@0600 LAB 10/25/19 06:00 Ordered CBC W/ AUTO DIFF Stat LAB 10/23/19 14:04 Completed CMP [COMPREHENSIVE METABOLIC PANEL] Stat LAB 10/23/19 14:04 Completed HEMOGLOBIN A1C Stat LAB 10/23/19 14:04 Completed NT-PROBNP DAILY@0600 LAB 10/24/19 04:00 Completed OVA AND PARASITES EXAM Stat LAB 10/23/19 18:26 Uncollected STOOL CULTURE Stat LAB 10/23/19 Uncollected cdiff [C. DIFFICILE] Routine LAB 10/23/19 18:26 Uncollected Carvedilol [Coreg] MEDS 10/23/19 21:00 Discontinued 12.5 mg PO BID Carvedilol [Coreg] MEDS 10/23/19 22:30 Discontinued 12.5 mg PO BID Carvedilol [Coreg] MEDS 10/24/19 08:00 Active 12.5 mg PO BIDWM Diltiazem HCl [Cardizem Cd] MEDS 10/24/19 09:00 Active 180 mg PO DAILY Diltiazem HCl [Cardizem Cd] MEDS 10/24/19 09:00 Discontinued 180 mg PO DAILY Diphenoxylate HCl/Atropine [Lomotil] MEDS 10/23/19 16:55 Discontinued 1 tab PO ONCE STA Enoxaparin Sodium [Lovenox] MEDS 10/23/19 18:30 Active 40 mg SUBCUT DAILY Furosemide [Lasix Tab] MEDS 10/23/19 18:25 Discontinued 20 mg PO ONCE ONE Furosemide [Lasix Tab] MEDS 10/23/19 22:30 Discontinued 20 mg PO ONCE ONE Hydrochlorothiazide MEDS 10/24/19 09:00 Active 12.5 mg PO DAILY Losartan Potassium [Cozaar] MEDS 10/24/19 09:00 Active 100 mg PO DAILY Losartan Potassium [Cozaar] MEDS 10/24/19 09:00 Discontinued 100 mg PO DAILY Metformin HCl [Glucophage] MEDS 10/23/19 22:30 Discontinued 500 mg PO BID Metformin HCl [Glucophage] MEDS 10/24/19 08:00 Active 500 mg PO BIDWM Ranitidine Hcl MEDS 10/24/19 08:00 Active 150 mg PO BIDAC hydrochlorothiazide MEDS 10/24/19 09:00 Discontinued 12.5 mg PO DAILY metformin [Fortamet] MEDS 10/23/19 21:00 Discontinued 500 mg PO BID ranitidine HCl MEDS 10/23/19 21:00 Discontinued 150 mg PO BID RESUSCITATION STATUS Routine OTHERS 10/23/19 18:21 Ordered CHEST, 1V AP ONLY Stat RADS 10/23/19 14:27 Completed KNEE, LEFT 4 VIEWS Stat RADS 10/23/19 12:58 Completed Medications Generic Name Dose Route Start Last Admin Trade Name Michaelq PRN Reason Stop Dose Admin Carvedilol 12.5 mg 10/24/19 08:00 Coreg PO BIDWM [facility] Diltiazem HCl 180 mg 10/24/19 09:00 Cardizem Cd PO DAILY [facility] Enoxaparin Sodium 40 mg 10/23/19 18:30 10/23/19 22:43 Lovenox SUBCUT 40 mg DAILY [facility] Administration Hydrochlorothiazide 12.5 mg 10/24/19 09:00 Hydrochlorothiazide PO DAILY [facility] Losartan Potassium 100 mg 10/24/19 09:00 Cozaar PO DAILY [facility] Metformin HCl 500 mg 10/24/19 08:00 Glucophage PO BIDWM [facility] Non-Formulary Medication 150 mg 10/24/19 08:00 Ranitidine Hcl PO BIDAC [facility] Discontinued Medications Generic Name Dose Route Start Last Admin Trade Name Wilfredo PRN Reason Stop Dose Admin Carvedilol 12.5 mg 10/23/19 21:00 10/23/19 22:47 Coreg PO Not Given BID DE[facility] Carvedilol 12.5 mg 10/23/19 22:30 10/23/19 22:48 Coreg PO 12.5 mg BID [facility] Administration Diltiazem HCl 180 mg 10/24/19 09:00 Cardizem Cd PO DAILY [facility] Diphenoxylate HCl/Atropine 1 tab 10/23/19 16:55 10/23/19 17:02 Lomotil PO 10/23/19 16:56 1 tab ONCE STA Administration Furosemide 20 mg 10/23/19 18:25 10/23/19 22:48 Lasix Tab PO 10/23/19 18:26 20 mg ONCE ONE Administration Furosemide 20 mg 10/23/19 22:30 10/23/19 22:49 Lasix Tab PO 10/23/19 22:31 Not Given ONCE ONE Losartan Potassium 100 mg 10/24/19 09:00 Cozaar PO DAILY [facility] Metformin HCl 500 mg 10/23/19 22:30 10/23/19 22:48 Glucophage PO 500 mg BID [facility] Administration Non-Formulary Medication 12.5 mg 10/24/19 09:00 Hydrochlorothiazide PO DAILY [facility] Non-Formulary Medication 500 mg 10/23/19 21:00 10/23/19 22:57 Metformin [Fortamet] PO Not Given BID [facility] Non-Formulary Medication 150 mg 10/23/19 21:00 10/23/19 22:21 Ranitidine Hcl PO Not Given BID [facility]
[2019-10-24] MEDS: COZAAR PO SCH (08:46)
[2019-10-24] MEDS: COREG PO SCH ×2 (08:46→17:14)
[2019-10-24] MEDS: GLUCOPHAGE PO SCH ×2 (08:47→17:15)
[2019-10-24] MEDS: CARDIZEM CD PO SCH (08:49)
[2019-10-24] MEDS: LOVENOX SUBCUT SCH (08:50)
[2019-10-24] MEDS ORDERED: HYDROCHLOROTHIAZIDE PO SCH (09:00)
[2019-10-24] MEDS ORDERED: NON-FORMULARY MEDICATION (Hydrochlorothiazide 12.5 MG) PO SCH (09:00)
[2019-10-24] MEDS ORDERED: CARDIZEM CD PO SCH (09:00)
[2019-10-24] MEDS ORDERED: COZAAR PO SCH (09:00)
[2019-10-24] MEDS ORDERED: LOVENOX SUBCUT SCH (09:00)
[2019-10-24 09:16] VITALS: BMI 39.4
--- NOTE | 2019-10-24 09:16 | PCM ---
Chief Complaint Chief Complaint: "low oxygen when being walked in ER" History of Present Illness History of Present Illness: Maritza Adhikari is a 69 yo female patient of [facility] who presented to [facility] ER 10/23/2019 12:05 for a fall when she missed a step at local business landing on her left knee w/ acute L knee pain. X-ray was done noting no fracture, tricompartmental osteoarthritis; and nonspecific small joint effusion. Prior to D/C MD had the patient ambulated to assure she could ambulate w/o crutches or other needed devices. The patient ambulated well, but upon O2 sat check 88% sat on RA was noted; CXR was ordered showing cardiomegaly and bilateral interstitial prominence that may represent interstitial edema or interstitial pneumonitis. Patient exam was benign otherwise per ER MD. Admission labs: CBC--WBC 13.45H, RBC 4.13L, Neut% 86.2H, Neut# 11.6H, and Lymph 7.7L otherwise normal; ABG's pH 7.451H, pCO2 44.2, pO2 55.0L, HCO3 30.8 H, Total CO2 32H, Base Excess 7H, Viktor +, FiO2 21.0 Sat 89.0L; CMP--CO2 32.9H, BUN 28.0H, Glucose 138.9H, Liver enzymes WNL; BNP 396.00H. Last Echo done several years ago and patient can't remember why it was done Just know that she has a heart murmur on exam at [facility] office At 10/23/19 17:51 the patient was admitted as observation for c/o's "low oxygen when being walked in ER". Plan was observation 24-36 hrs w/ diuretics, monitor patient, repeat ECHO and compare w/ prior echo; then d/c to PCP and Cardiology appt. (pt. states has appt in 2-3 wks--her brother knows election supervisor and appt. time). Patient is a poor historian w/o family here during admission to clarify her health information. She is mentally slow per ER MD and noted here per staff. She denies SOB, BARRAZA, dizziness, CP, L arm pain, palpitaitons, racing heart, weakness, fatigue or other health symptoms. Her L knee that she fell on yesterday does not even hurt her except to palpation of the area. Further Echo report and LHC/RHC obtained from Cesia Chakraborty APRN office and [facility] Dr. Donal Martínez of [place] office were reviewed. 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 07/04/20 LHC/RHC done per Dr. Donal Martínez at [facility] [place], [place] noted Mile pulmonary HTN secondary to LHC, Normal cardiac output, Mildly increased Left filling pressure, no significant CAD, and otherwise normal. The cath was done as preliminary evaluation for recommended AVR. 05/17/2019 Transthoracic Echo findings: Normal L ventricle cavity w/ normal systolic function; EF 55-60%; Features are consistent w/ pseudo-normal L ventricular filling pattern (grade 2 dysfunction); Moderately dilated L atrium; Markedly increased R ventricle Systolic pressure; R atrium dilated; Severe stenosis aortic valve w/ mean gradient (S) 44mm Hg; Moderate regurgitation Tricuspid valve; and increased Pulmonary arteries systolic pressure. During patient ER evaluation she had 2 explosive liquid stools (pt. unable to describe color/consistency) w/ sudden onset. She was then free of diarrhea until approximately 24 hrs later when she had another episode. There is sudden abdominal cramping w/ diarrhea, but denies f/c, N/V, decreased appetite, headache, dizziness, SOB, BARRAZA, melena recently (see ROS). She was started on a clear liquid diet at present and Stool C&S, O&P, and C.diff were ordered. Patient denies contact w/ any illness, recent ATB use, or other known contaminant. States she is usually only at home and eating her own food. No stools have been collected at this time. Talked w/ Dr. Zain Zabala MD election supervisor office ([place], [place] [phone]) Radha who notes patient had an appt 06/2019, but a relative called for the patient and cancelled because "the patient did not understand what she needed to be seen for" (this was her TAVR evaluation appt.) Patient has no further appts scheduled at this time. Review of Systems Constitutional: Reports fever, chills, weakness, sweats, fatigue, loss of appetite and other Eyes: Reports other (Wears glasses most of the time.); Denies blurred vision, double-vision, discharge, itching, pain and redness Ears: Denies pain, bleeding, drainage, ringing and hearing loss Nose: Denies bleeding, congestion and discharge Throat: Denies pain, swelling and voice change Mouth: Denies bleeding, pain and swelling Respiratory: Denies cough, shortness of air, wheeze, hemoptysis and pain with breathing Cardiovascular: Reports orthopnea (2-3 pillows at HS for "years"); Denies chest pain, left arm pain, diaphoresis, PND, edema, palpitations and syncope Gastrointestinal: Reports diarrhea (2 episodes of diarrhea yest in ER; no stools since; pt. unable to describe her stools.); Denies abdominal pain, nausea, vomiting, melena, hematemesis, hematochezia, dysphagia, constipation and other Genitourinary: Denies dysuria, hematuria, frequency, incontinence, flank pain, vaginal discharge, abnormal bleeding and pelvic pain Last Menstrual Cycle: Post Menopausal Neurological: Denies headache, dizziness, seizure, numbness, weakness, speech difficulty, problems with walking, tremor and fainting Musculoskeletal: Denies pain (Denies also R knee pain s/p fall 10/23/19. ) and swelling in joints Skin: Denies rash, pruritus, lacerations, wounds and bruising Hematology: Denies easy bruising, easy bleeding and swollen glands Endocrine: Denies weight changes, cold intolerance, heat intolerance, excessive thirst, excessive hunger and polyuria Psychiatric: Denies depression, anxiety, sleeplessness, hopelessness, suicidal (Denies SI or HI ) and hallucinations Habits: Denies tobacco use, substance use and alcohol use Allergies Allergies Allergy/AdvReac Type Severity Reaction Status Date / Time No Known Allergies Allergy Verified 10/23/19 17:39 [facility] Medical History (Updated 10/24/19 @ 16:00 by BHARATH MALCOLM) Aortic stenosis, severe (Chronic) Helicobacter pylori infection Hyperlipidemia (Acute) Hypertension (Chronic) Morbid obesity (Acute) Tricuspid valve regurgitation (Chronic) Type 2 diabetes mellitus (Chronic) Surgical History (Updated 10/24/19 @ 14:24 by BHARATH MALCOLM) History of bilateral hip replacements (Acute) History of right and left heart catheterization (Acute) Family History (Updated 10/24/19 @ 09:02 by BHARATH MALCOLM) Mother Cerebrovascular accident Father Cancer BROTHER Diabetes Hypertension Social History Smoking and tobacco status: Former smoker Substance use type: does not use Medications Medications: Home Medications carvedilol [Coreg] 25 mg PO BID 04/02/15 [History Confirmed 10/24/19] diltiazem HCl [Cartia Xt] 180 mg PO DAILY 04/02/15 [History Confirmed 10/23/19] losartan 100 mg PO DAILY 04/02/15 [History Confirmed 10/23/19] ranitidine HCl 150 mg PO BID 04/02/15 [History Confirmed 10/23/19] metformin [Fortamet] 500 mg PO BID 06/28/15 [History Confirmed 10/23/19] hydrochlorothiazide 12.5 mg PO DAILY 09/28/15 [History Confirmed 10/23/19] atorvastatin 20 mg PO DAILY 10/24/19 [History Confirmed 10/24/19] azithromycin 10/24/19 [History] gabapentin 300 mg PO DAILY 10/24/19 [History Confirmed 10/24/19] sitagliptin [Januvia] 100 mg PO DAILYWM 10/24/19 [History Confirmed 10/24/19] Active Medications Generic Name Dose Route Start Last Admin Trade Name Michaelq PRN Reason Stop Dose Admin Carvedilol 12.5 mg 10/24/19 08:00 10/24/19 08:46 Coreg PO 12.5 mg BIDWM DEBBY Administration Diltiazem HCl 180 mg 10/24/19 09:00 10/24/19 08:49 Cardizem Cd PO 180 mg DAILY DEBBY Administration Enoxaparin Sodium 40 mg 10/23/19 18:30 10/24/19 08:50 Lovenox SUBCUT 40 mg DAILY DEBBY Administration Hydrochlorothiazide 12.5 mg 10/24/19 09:00 10/24/19 08:48 Hydrochlorothiazide PO 12.5 mg DAILY DEBBY Administration Losartan Potassium 100 mg 10/24/19 09:00 10/24/19 08:46 Cozaar PO 100 mg DAILY DEBBY Administration Metformin HCl 500 mg 10/24/19 08:00 10/24/19 08:47 Glucophage PO 500 mg BIDWM DEBBY Administration Non-Formulary Medication 150 mg 10/24/19 08:00 Ranitidine Hcl PO BIDAC [facility] Body Composition Height: 5 ft 4 in Weight: 230 lb Body Mass Index (BMI): 39.4 Vital Signs Temperature: 98.7 F Pulse Rate: 66 Respiratory Rate: 24 Blood Pressure: 95/36 O2 Sat by Pulse Oximetry: 87 Physical Examination Appearance: Reports Well-appearing, No pain distress, Well-nourished and Obese Pain Distress: None Eyes: Reports GEORGE, EOMI, Conjunctiva clear, Conjunctiva pale, Right pupil size and Left pupil size ENT: Reports Ears normal, Nose normal and Oropharynx normal; Denies TMs Occluded, Rhinorrhea, Epistaxis, Erythema, Exudate and Dry mucosa Neck: Supple Respiratory: Reports Airway patent, Breath sounds clear (except for faint bibasilar wet crackles.) and Respirations nonlabored; Denies Breath sounds equal, Breath sounds diminished, Rhonchi, Wheezes and Retractions Cardiovascular: Reports RRR, Pulses normal, No rub and Murmur (2+/4+ Systolic ejection murmur loudest over L 5th ICS.) GI/: Reports Soft, Nontender, No masses, Bowel sounds normal and No Organomegaly Musculoskeletal: Reports Normal strength, ROM intact, No edema and No calf tenderness Skin: Reports Warm, Dry and Normal color Neurological: Reports Sensation intact, Motor intact, Reflexes intact, Cranial nerves intact, Alert and Oriented (X4; Short term memory fair.) Psychiatric: Reports Affect appropriate and Mood appropriate; Denies Anxious and Depressed (Denies SI/HI or hx of same. Mentally slow. IQ unknown. Pleasant and cooperative w/ good eye contact.) Lab/Tests/Diagnostic Imaging Lab/Tests/Diagnostic Imaging: Lab Review 10/23/19 10/23/19 10/23/19 13:54 14:04 14:04 WBC 13.45 H RBC 4.13 L Hgb 12.6 Hct 38.3 MCV 92.7 MCH 30.5 MCHC 32.9 RDW Coeff of Guzman 13.7 Plt Count 203 Immature Gran % (Auto) 0.4 Neut % (Auto) 86.2 H Lymph % (Auto) 7.7 L Williamson % (Auto) 4.6 Eos % (Auto) 0.8 Baso % (Auto) 0.3 Immature Gran # (Auto) 0.1 Neut # (Auto) 11.6 H Lymph # (Auto) 1.0 Williamson # (Auto) 0.6 Eos # (Auto) 0.1 Baso # (Auto) 0.0 Puncture Site Rr O2 Saturation 89.0 L ABG pH 7.451 H ABG pCO2 44.2 ABG pO2 55.0 L* ABG HCO3 30.8 H ABG Total CO2 32 H ABG Base Excess 7 H Viktor Test + FiO2 % 21.0 Sodium 138.7 Potassium 3.87 Chloride 99.7 Carbon Dioxide 32.9 H Anion Gap 9.97 BUN 28.0 H Creatinine 1.03 Estimated GFR (MDRD) 53.00 BUN/Creatinine Ratio 27.18 Glucose 138.9 H Calcium 9.04 Total Bilirubin 1.12 AST 25.5 ALT 15.5 Alkaline Phosphatase 91.9 Total Protein 6.55 Albumin 3.65 Globulin 2.90 Albumin/Globulin Ratio 1.25 10/23/19 CXR 1V IMPRESSION: Cardiomegaly. Bilateral interstitial prominence may represent interstitial edema or interstitial pneumonitis Orders Category Date Time Status ADMIT OBSERVATION [PLACE PATIENT OBSERVATION] .TO ADMISSION 10/23/19 17:47 Active MEDSURG (MONITORED BED) ABG DRAW REQUEST Stat CARDIO 10/23/19 13:54 Completed EKG-(ED ONLY) Stat CARDIO 10/23/19 16:47 Completed TELEMETRY MONITORING TELE CARE 10/23/19 17:49 Active ABG Stat LAB 10/23/19 13:54 Completed CBC W/ AUTO DIFF Stat LAB 10/23/19 14:04 Completed CMP [COMPREHENSIVE METABOLIC PANEL] Stat LAB 10/23/19 14:04 Completed Diphenoxylate HCl/Atropine [Lomotil] MEDS 10/23/19 16:55 Discontinued 1 tab PO ONCE STA CHEST, 1V AP ONLY Stat RADS 10/23/19 14:27 Completed KNEE, LEFT 4 VIEWS Stat RADS 10/23/19 12:58 Completed Medications Discontinued Medications Generic Name Dose Route Start Last Admin Trade Name Freq PRN Reason Stop Dose Admin Diphenoxylate HCl/Atropine 1 tab 10/23/19 16:55 10/23/19 17:02 Lomotil PO 10/23/19 16:56 1 tab ONCE STA Administration Assessment (1) Oxygen desaturation: Status: Acute Code(s): R09.02 - Hypoxemia SNOMED Code(s): 824142535 (2) Aortic stenosis, severe: Status: Chronic Code(s): I35.0 - Nonrheumatic aortic (valve) stenosis SNOMED Code(s): 81298132 (3) Tricuspid valve regurgitation: Status: Chronic Code(s): I07.1 - Rheumatic tricuspid insufficiency SNOMED Code(s): 969342066 Qualifiers: Cardiac valve disease etiology: etiology unspecified Qualified Code(s): I07.1 - Rheumatic tricuspid insufficiency (4) Pulmonary edema cardiac cause: Status: Acute Code(s): I50.1 - Left ventricular failure, unspecified SNOMED Code(s): 96802103 (5) Gastroenteritis: Status: Acute Code(s): K52.9 - Noninfective gastroenteritis and colitis, unspecified SNOMED Code(s): 36839555 (6) Hypertension: Status: Chronic SNOMED Code(s): 00376625 Qualifiers: Hypertension type: unspecified Qualified Code(s): I10 - Essential (primary) hypertension (7) Hyperlipidemia: Status: Acute Code(s): E78.5 - Hyperlipidemia, unspecified SNOMED Code(s): 61742851 Qualifiers: Hyperlipidemia type: unspecified Qualified Code(s): E78.5 - Hyperlipidemia, unspecified (8) Type 2 diabetes mellitus: Status: Chronic Qualifiers: Diabetes mellitus complication status: without complication Diabetes mellitus care home insulin use: without care home use Qualified Code(s): E11.9 - Type 2 diabetes mellitus without complications (9) Morbid obesity: Status: Acute Code(s): E66.01 - Morbid (severe) obesity due to excess calories SNOMED Code(s): 155465476 (10) Arthritis of knee, right: Status: Acute Code(s): M12.9 - Arthropathy, unspecified SNOMED Code(s): 985585950 Plan Plan: O2 Desaturation w/ ambulation in ER -- O2 Sat 89.0 incidental finding in ER when evaluation L knee w/ recent injury for ambulation. Patient denies any sx's of SOB or BARRAZA. Lab results and CXR findings discussed in HPI. O2 per protocol. Monitor labs, VS, and patient status. Aortic Stenosis, Severe w/ Tricuspid valve regurgitation--Worsening?? ECHO ordered today to reassess cardiac status currently. Telemetry cont'd. 2+/4+ Systolic Ejection Murmur greatest L 5th ICS. Patient states she is asymptomatic. See HPI for cardiology f-u w/ family not keeping last appt to discuss TAVR 06/2019 s/ Dr. Zain Zabala, election supervisor [place], [place] ([phone]). CRIME DATA SPECIALIST has called Dr. Zabala, election supervisor, office and the earliest appt that patient can be seen is @ 2:50PM. Cardiology office gave CR[employer] DATA SPECIALIST Saqib Morelos ([phone]) "special friend" who assists w/ office appts. phone number. Saqib was called and informed of patient current status w/ importance of cardiology f-u Nov 06 as noted as patient is needing evaluation for TAVR. Saqib notes she will contact patient's brother who is out of town and she and he will take patient to her appt. Have also instructed Saqib that patient will need appt in 3-4 days after discharge for f-u post hospitalization w/ Cesia Chakraborty. Saqib was very helpful and pledges to help this patient w/ special mental health needs. Pulmonary Edema d/t heart disease --New Onset? has been on HCTZ for BP per patient?? Con't home meds HCTZ at 25mg PO daily. Monitor VS and O2 per protocol. Keep cardiology appt--see Aortic Stenosis plan of care above. Gastroenteritis w/ explosive diarrhea X3 -- improving but not resolved. WBC's 13.9--patient unsure of contacts and denies recent illness. Sending stools for C.diff, O&P, and C&S; will treat diarrhea if worsens. Would like to wait for test results first. Patient is asymptomatic except for diarrhea X3 in last 24- 48 hrs. Clear liquid diet and advance as tolerated; avoid milk/milk products, high sugar drinks, and high roughage. Monitor stools, contact precautions, and monitor VS. Tylenol prn fever >101 degrees. HTN -- Controlled; con't home meds; monitor VS. HLD -- Con't home meds; Heart healthy diet when patient off clear liquids. Type 2 NIDDM-- Stable w/ slightly increasing A1C 7.06 10/23/19. Cont home meds. Patient likely does not follow diabetic diet at home and intellectually not able to understand. No family here per her friend, Saqib, w/ patient doing the best she can at this point. Morbid Obesity--unchanging and not likely to change due to her independence w/ limited IQ. See Type 2 NIDDM comments. Arthritis R Knee w/ recent fall -- stable w/o pain or limp or complaint. F-U w/ PCP Cesia Chakraborty if further problems. Disposition Visit time: 75minutes for obtaining records, speaking w/ 2 cardiology offices, PCP office, and election supervisor here reading patient ECHO. Patient will likely be 24-48 hr admit for obs. If diarrhea is subsiding, and no other symptoms will d/c tomorrow afternoon w/ PCP f-u in 3-4 days or sooner problems.
[2019-10-24] MEDS: NON-FORMULARY MEDICATION (Ranitidine Hcl 150 MG) PO SCH ×2 (09:49→17:15)
[2019-10-24] MEDS: JANUVIA PO SCH (09:56)
[2019-10-24] MEDS: LIPITOR PO SCH (20:30)
[2019-10-25] MEDS: NON-FORMULARY MEDICATION (Ranitidine Hcl 150 MG) PO SCH (05:33)
[2019-10-25] MEDS: JANUVIA PO SCH (08:54)
[2019-10-25] MEDS: COREG PO SCH (08:55)
[2019-10-25] MEDS: LIPITOR PO SCH (08:55)
[2019-10-25] MEDS: COZAAR PO SCH (08:55)
[2019-10-25] MEDS: CARDIZEM CD PO SCH (08:55)
[2019-10-25] MEDS: GLUCOPHAGE PO SCH (08:56)
[2019-10-25] MEDS: LOVENOX SUBCUT SCH (08:56)
[2019-10-25] MEDS ORDERED: NEURONTIN PO SCH (09:00)
[2019-10-25] MEDS ORDERED: HYDROCHLOROTHIAZIDE PO SCH (09:00)
--- NOTE | 2019-10-25 09:03 | PCM.DC ---
Final Diagnosis: Severe Aortic Stenosis Oxygen desaturation, stable/secondary to Severe Aortic Stenosis w/ patient compensation (1) Oxygen desaturation: Status: Acute Code(s): R09.02 - Hypoxemia SNOMED Code(s): 753773273 (2) Aortic stenosis, severe: Status: Chronic Code(s): I35.0 - Nonrheumatic aortic (valve) stenosis SNOMED Code(s): 05938665 (3) Tricuspid valve regurgitation: Status: Chronic Code(s): I07.1 - Rheumatic tricuspid insufficiency SNOMED Code(s): 603403061 Qualifiers: Cardiac valve disease etiology: etiology unspecified Qualified Code(s): I07.1 - Rheumatic tricuspid insufficiency (4) Pulmonary edema cardiac cause: Status: Acute Code(s): I50.1 - Left ventricular failure, unspecified SNOMED Code(s): 17761528 (5) Gastroenteritis: Status: Acute Code(s): K52.9 - Noninfective gastroenteritis and colitis, unspecified SNOMED Code(s): 01550229 (6) Hypertension: Status: Chronic SNOMED Code(s): 30221776 Qualifiers: Hypertension type: unspecified Qualified Code(s): I10 - Essential (primary) hypertension (7) Hyperlipidemia: Status: Acute Code(s): E78.5 - Hyperlipidemia, unspecified SNOMED Code(s): 93408783 Qualifiers: Hyperlipidemia type: unspecified Qualified Code(s): E78.5 - Hyperlipidemia, unspecified (8) Type 2 diabetes mellitus: Status: Chronic Qualifiers: Diabetes mellitus complication status: without complication Diabetes mellitus snf insulin use: without snf use Qualified Code(s): E11.9 - Type 2 diabetes mellitus without complications (9) Morbid obesity: Status: Acute Code(s): E66.01 - Morbid (severe) obesity due to excess calories SNOMED Code(s): 281454118 (10) Arthritis of knee, right: Status: Acute Code(s): M12.9 - Arthropathy, unspecified SNOMED Code(s): 719781230 Reason for Hospitalization: Desaturation upon ambulation check for knee injury from fall in [facility] ER noted O2 sat in 80's; See ABG's in labs. Prognosis at Discharge: Good w/ cardiology consult and TAVR in near future. Condition at Discharge: Stable w/ mild hypotension ?? secondary to current meds w/ patient asymptomatic and probably compensating chronically. Medications at Discharge: Ambulatory Orders Medication Instructions Recorded carvedilol [Coreg] 25 mg PO BID 04/02/15 diltiazem HCl [Cartia Xt] 180 mg PO DAILY 04/02/15 losartan 100 mg PO DAILY 04/02/15 ranitidine HCl 150 mg PO BID 04/02/15 metformin [Fortamet] 500 mg PO BID 06/28/15 hydrochlorothiazide 25 mg PO DAILY 09/28/15 atorvastatin 20 mg PO DAILY 10/24/19 azithromycin 10/24/19 gabapentin 300 mg PO DAILY 10/24/19 potassium chloride 10 meq PO DAILY 10/24/19 sitagliptin [Januvia] 100 mg PO DAILYWM 10/24/19 Lab/Diagnostics: Laboratory Results WBC 13.45 K/ul (4.6-10.2) H 10/23/19 14:04 RBC 4.13 10^6/ul (4.20-5.40) L 10/23/19 14:04 Hgb 12.6 g/dl (12.0-16.0) 10/23/19 14:04 Hct 38.3 % (37.0-47.0) 10/23/19 14:04 MCV 92.7 fl (81.0-99.0) 10/23/19 14:04 MCH 30.5 pg (27.0-31.0) 10/23/19 14:04 MCHC 32.9 (31.8-35.4) 10/23/19 14:04 RDW Coeff of Guzman 13.7 % (11.6-14.8) 10/23/19 14:04 Plt Count 203 10^3/uL (140-440) 10/23/19 14:04 Immature Gran % (Auto) 0.4 % (0.0-5.0) 10/23/19 14:04 Neut % (Auto) 86.2 % (42.2-75.2) H 10/23/19 14:04 Lymph % (Auto) 7.7 (10.0-50.0) L 10/23/19 14:04 [place] % (Auto) 4.6 (0-10) 10/23/19 14:04 Eos % (Auto) 0.8 % (0.0-7.0) 10/23/19 14:04 Baso % (Auto) 0.3 % (0.0-3.0) 10/23/19 14:04 Immature Gran # (Auto) 0.1 (0.0-1.0) 10/23/19 14:04 Neut # (Auto) 11.6 K/ul (2.0-6.9) H 10/23/19 14:04 Lymph # (Auto) 1.0 K/uL (0.60-3.4) 10/23/19 14:04 [place] # (Auto) 0.6 K/uL (0.4-2.0) 10/23/19 14:04 Eos # (Auto) 0.1 K/ul (0.0-0.7) 10/23/19 14:04 Baso # (Auto) 0.0 K/uL (0-0.2) 10/23/19 14:04 Puncture Site Rr 10/23/19 13:54 O2 Saturation 89.0 % (95-100) L 10/23/19 13:54 ABG pH 7.451 (7.35-7.45) H 10/23/19 13:54 ABG pCO2 44.2 mmHg (35-45) 10/23/19 13:54 ABG pO2 55.0 mmHg (85-100) L* 10/23/19 13:54 ABG HCO3 30.8 (22.0-26.0) H 10/23/19 13:54 ABG Total CO2 32 (22.0-28.0) H 10/23/19 13:54 ABG Base Excess 7 (-2.0-2.0) H 10/23/19 13:54 Viktor Test + 10/23/19 13:54 FiO2 % 21.0 % 10/23/19 13:54 Sodium 138.3 mmol/L (134.5-145) 10/25/19 04:46 Potassium 3.18 mmol/L (3.5-5.1) L 10/25/19 04:46 Chloride 94.9 mmol/L (98-107) L 10/25/19 04:46 Carbon Dioxide 37.3 mmol/L (22-30.0) H 10/25/19 04:46 Anion Gap 9.28 10/25/19 04:46 BUN 23.0 mg/dL (7-17) H 10/25/19 04:46 Creatinine 0.78 mg/dL (0.60-1.30) 10/25/19 04:46 Estimated GFR (MDRD) 73.00 mL/min 10/25/19 04:46 BUN/Creatinine Ratio 29.48 10/25/19 04:46 Glucose 138.6 mg/dL (74-106) H 10/25/19 04:46 Hemoglobin A1c 7.06 (4.0-6.0) H 10/23/19 14:04 Calcium 8.45 mg/dL (8.4-10.2) 10/25/19 04:46 Total Bilirubin 1.12 mg/dL (0.2-1.3) 10/23/19 14:04 AST 25.5 U/L (14-36) 10/23/19 14:04 ALT 15.5 U/L (0-35) 10/23/19 14:04 Alkaline Phosphatase 91.9 U/L (53-141) 10/23/19 14:04 NT-Pro-B Natriuret Pep 391.000 pg/mL (0-124) H 10/24/19 04:00 Total Protein 6.55 g/dL (6.3-8.2) 10/23/19 14:04 Albumin 3.65 g/dL (3.5-5.0) 10/23/19 14:04 Globulin 2.90 10/23/19 14:04 Albumin/Globulin Ratio 1.25 10/23/19 14:04 10/23/19 CXR 1V IMPRESSION: Cardiomegaly. Bilateral interstitial prominence may represent interstitial edema or interstitial pneumonitis. 10/24/19 3-D ECHO Read by Hayes Berg MD [facility] INTERPRETATION: 1. LEFT VENTRICULAR HYPERTROPHY WITH ENLARGED LEFT ATRIAL CAVITY 2. HEAVILY CALCIFIC MITRAL VALVE ANNULUS 3. SEPARATION OF AORTIC LEAFLETS NOTED--DIFFICULT TO VISUALIZE AORTIC ROOT 4. NORMAL LEFT VENTRICULAR CONTRACTILITY RECOMMEND: COMPLETE ECHO WITH DOPPLER AND COLOR FLOW Education Provided to Patient and Family: Patient understanding and IQ is limited w/ very simple explanation of ECHO results and need for f-u appt w/ Dr. Zabala explained. Handouts given for patient/Saqib, pt. friend who assists at times with her care. There is no family in the area and a brother who is unavailable at present and living away from the area; Saqib relays information to the brother as able. Follow-ups: F-U w/ Cesia Chakraborty, PCP, in 3-5 days Return to [facility] as outpatient on 09/30/19 9:00 AM for Color Flow studies post ECHO per Dr. Aleksey Berg's recommendations (results to be sent to Cesia Chakraborty, PCP, and [facility] Dr. Zain Zabala) F-U appt. Nov 06 2:50 PM w/ Dr. Zain Zabala (Saqib, patient friend/asst aware). Use home O2 @ 2L/NC all the time including at night. Absolutely no smoking or fires in the home and around the oxygen equipment. Saqib, friend, will offer reminders when she is there Discharge Disposition: Home Hospital Course: Maritza Adhikari is a 69 yo female patient of Cesia Chakraborty who presented to [facility] ER 10/23/2019 12:05 for a fall when she missed a step at local business landing on her left knee w/ acute L knee pain. X-ray was done noting no fracture, tricompartmental osteoarthritis; and nonspecific small joint effusion. Prior to D/C MD had the patient ambulated to assure she could ambulate w/o crutches or other needed devices. The patient ambulated well, but upon O2 sat check 88% sat on RA was noted; CXR was ordered showing cardiomegaly and bilateral interstitial prominence that may represent interstitial edema or interstitial pneumonitis. Patient exam was benign otherwise per ER MD. Admission labs: CBC--WBC 13.45H, RBC 4.13L, Neut% 86.2H, Neut# 11.6H, and Lymph 7.7L otherwise normal; ABG's pH 7.451H, pCO2 44.2, pO2 55.0L, HCO3 30.8 H, Total CO2 32H, Base Excess 7H, Viktor +, FiO2 21.0 Sat 89.0L; CMP--CO2 32.9H, BUN 28.0H, Glucose 138.9H, Liver enzymes WNL; BNP 396.00H. Last Echo done several years ago and patient can't remember why it was done Just know that she has a heart murmur on exam at [facility] office At 10/23/19 17:51 the patient was admitted as observation for c/o's "low oxygen when being walked in ER". Plan was observation 24-36 hrs w/ diuretics, monitor patient, repeat ECHO and compare w/ prior echo; then d/c to PCP and Cardiology appt. (pt. states has appt in 2-3 wks--her brother knows [facility] and appt. time). Patient is a poor historian w/o family here during admission to clarify her health information. She is mentally slow per ER MD and noted here per staff. She denies SOB, BARRAZA, dizziness, CP, L arm pain, palpitaitons, racing heart, weakness, fatigue or other health symptoms. Her L knee that she fell on yesterday does not even hurt her except to palpation of the area. Further Echo report and LHC/RHC obtained from Cesia Chakraborty APRN office and [facility] Dr. Donal Martínez of [place] office were reviewed. 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 07/04/20 LHC/RHC done per Dr. Donal Martínez at [facility] @ [place], [place] noted Mile pulmonary HTN secondary to LHC, Normal cardiac output, Mildly increased Left filling pressure, no significant CAD, and otherwise normal. The cath was done as preliminary evaluation for recommended AVR. 05/17/2019 Transthoracic Echo findings: Normal L ventricle cavity w/ normal systolic function; EF 55-60%; Features are consistent w/ pseudo-normal L ventricular filling pattern (grade 2 dysfunction); Moderately dilated L atrium; Markedly increased R ventricle Systolic pressure; R atrium dilated; Severe stenosis aortic valve w/ mean gradient (S) 44mm Hg; Moderate regurgitation Tricuspid valve; and increased Pulmonary arteries systolic pressure. During patient ER evaluation she had 2 explosive liquid stools (pt. unable to describe color/consistency) w/ sudden onset. She was then free of diarrhea until approximately 24 hrs later when she had another episode. There is sudden abdominal cramping w/ diarrhea, but denies f/c, N/V, decreased appetite, headache, dizziness, SOB, BARRAZA, melena recently (see ROS). She was started on a clear liquid diet at present and Stool C&S, O&P, and C.diff were ordered. Blanca beard denies contact w/ any illness, recent ATB use, or other known contaminant. States she is usually only at home and eating her own food. No stools have been collected at this time. Talked w/ Dr. Zain Zabala MD [facility] office ([place], [place] [phone]) Radha who notes patient had an appt 06/2019, but a relative called for the patient and cancelled because "the patient did not understand what she needed to be seen for" (this was her TAVR evaluation appt.) Patient has no further appts scheduled at this time. BP episodic lows treated w/ bolus 500ml NS w/ slight increase of BP prior to d/c. Avoided 1000ml bolus due to already heart disease and pulmonary infiltrates on adm. CXR. See HTN Plan below. Plan: O2 Desaturation w/ ambulation in ER -- O2 Sat 89.0 incidental finding in ER when evaluation L knee w/ recent injury for ambulation. Patient denies any sx's of SOB or BARRAZA. Do 3 step check for possible home O2. Has been on O2 2L/NC during hospitalization. 3 step verifies patient qualifies for home O2; appreciate asst from Rashid Darden, and ARMEN Baez,RN [facility] Milk Deliverer for assistance w/ home O2 and initial home monitoring. Oxygen education given to personal friend, Saqib, and patient w/ Yi Caballero also intervening. Aortic Stenosis, Severe w/ Tricuspid valve regurgitation--Worsening?? 10/24/19 3-D ECHO results note :1. LEFT VENTRICULAR HYPERTROPHY WITH ENLARGED LEFT ATRIAL CAVITY 2. HEAVILY CALCIFIC MITRAL VALVE ANNULUS 3. SEPARATION OF AORTIC LEAFLETS NOTED--DIFFICULT TO VISUALIZE AORTIC ROOT 4. NORMAL LEFT VENTRICULAR CONTRACTILITY. Dr. Berg reading ECHO is now recommending Complete ECHO w/ Color Flow study that is scheduled for [facility] ER 10/31 @ 9AM CP dept. Patient has Systolic Ejection Murmur greatest L 5th ICS. Patient claims she is asymptomatic, but has been noted by staff to be BARRAZA w/ O2 @ 2L/NC. Patient may need cardiology referral for [facility] until she can see Dr. Zain Zabala, [facility] [place], [place] ([phone]) Nov 06 2:50 PM to schedule her TAVR. Saqib Morelos, "special friend" who assists w/ office appts. phone number is aware of patient current status w/ importance of keeping this cardiology f-u appt. Appts w/ Dr. Zabala are limited and his schedule had a cancellation to get the patient in this quickly. F-U w/ PCP Cesia Chakraborty APRN for management Tuesday as appt. scheduled. Pulmonary Edema d/t heart disease --New Onset or Unknown Chronic w/ patient compensation;Con't home HCTZ 25mg PO daily. Needs TAVR to prevent further complications. Further evaluation and treatment per PCP until able to see [facility]. Keep cardiology appt--see Aortic Stenosis plan of care above. Gastroenteritis w/ explosive diarrhea X3 resolving; no diarrhea for 24hrs and denies abdominal c/o's. Stools for C.diff, O&P, and C&S ordered but not collected; seek tx w/ PCP if diarrhea recurs. Avoid milk/milk products, high sugar drinks, and high roughage for 3-5 days and if no more diarrhea resume normal diet. HTN -- Stable w/ 2 periods of decreasing to 80/42 and 88/40 w/ last episode prior to d/c, so patient was bolused w/ 500ml NS w/ BP post bolus 96/48. Patient denies dizziness, SOB, blurred vision, syncope, CP, or other symptoms. Says she is feeling "fine"; Cont home meds w/ F-u PCP Tuesday for further assessment and probable adjustment of present medications. HLD -- Stable. Con't home meds; Heart healthy diet when patient off clear liquids. Type 2 NIDDM-- Stable w/ slightly increasing A1C 7.06 10/23/19. Cont home meds. Patient likely does not follow diabetic diet at home and intellectually not able to understand. No family in [place] area per her friend, Saqib, w/ patient doing the best she can at this point. Morbid Obesity--unchanging and not likely to change due to her independence w/ limited IQ. See Type 2 NIDDM comments. Arthritis R Knee w/ recent fall -- stable w/o pain or limp or complaint. No pain meds needed. F-U w/ PCP Cesia Chakraborty if further problems. Disposition DiVisit time: 75minutes for review of 10/24/19 ECHO results, D/C planning needing case management and intercession w/ patient friend Saqib in the absence of family and pt. limited IQ status; speaking w/ PCP office, nurse huddle, and several Case Management huddles for testing and home O2, and consulting w/ SAM BaezN, RN, NUCLEAR LOGGING ENGINEER-P [facility] Milk Deliverer for home assistance and monitoring services post d/c. F-U appt. Tuesday w/ Cesia Chakraborty APRN, PCP. Home w/ transport per friend, Saqib Morelos.
--- NOTE | 2019-10-25 09:18 | ECHO2D ---
Date of Exam: 10/24/2019 Ordering Physician: ROSMERY [facility]/ GAVI- HOSPITALIST Room #: 111 Reason for Echo: AORTIC STENOSIS, DM, HTN, PULMONARY EDEMA, TRICUSPID VALVE REGURGITATION, HYPERLIPIDEMIA M-Mode Normal Adult Results LV Dimensions Normal Adult Results AoV Opening excursions >1.6 1.3 LVEDD-base- 3.5-5.8 5.6 Ao root dimensions 2.0-3.7 3.3 LVESD-base- 3.1-4.6 L. Atrium dimensions 1.9-3.8 4.4 Post. Wall thickness 0.8-1.1 1.3 IV septum (thickness) 0.7-1.2 1.2 Post. Wall excursion 0.72-1.3 NORMAL Septal motion NORMAL Systolic motion R. Ventricular cavity 1.5-2.0 NORMAL LVEF 60% 72% Paradoxical septal wall motion NORMAL 2-D : ENLARGED LEFT ATRIAL CAVITY--NORMAL LEFT VENTRICULAR CONTRACTILITY--NO EFFUSION, NO THROMBUS--HEAVILY CALCIFIED MITRAL VALVE ANNULUS--SEPARATION OF AORTIC LEAFLETS NOTED M-MODE: MV: HEAVILY CALCIFIC MITRAL VALVE ANNULUS AV: SEPARATION OF AORTIC LEAFLETS NOTED TV: NORMAL PV: NORMAL CHAMBER SIZE: ENLARGED LEFT ATRIAL CAVITY WALL MOTION: NORMAL PERICARDIUM: NORMAL INTERPRETATION: 1. LEFT VENTRICULAR HYPERTROPHY WITH ENLARGED LEFT ATRIAL CAVITY 2. HEAVILY CALCIFIC MITRAL VALVE ANNULUS 3. SEPARATION OF AORTIC LEAFLETS NOTED--DIFFICULT TO VISUALIZE AORTIC ROOT 4. NORMAL LEFT VENTRICULAR CONTRACTILITY RECOMMEND: COMPLETE ECHO WITH DOPPLER AND COLOR FLOW MTDD
[2019-10-25 10:18] VITALS: TEMP 98.2
[2019-10-25 10:38] LABS: HEMATOCRIT 38.4 % (37.0-47.0)
[2019-10-25] MEDS ORDERED: SODIUM CHLORIDE 1,000 ML IV ONE (13:45)
[2019-10-25 16:54] VITALS: BP 98/46
== END 2019-10-25 16:10 | disposition home or self-care (01) ==
LOC: ED 12:05 → MEDSURG A 12:05
PROVIDERS: ADMIT Nurse Practitioner Family; ATTEND Nurse Practitioner Family
DX: S89.92XA Unspecified injury of left lower leg, initial encounter; E66.01 Morbid (severe) obesity due to excess calories; I35.0 Nonrheumatic aortic (valve) stenosis; E11.9 Type 2 diabetes mellitus without complications; E78.5 Hyperlipidemia, unspecified; K52.9 Noninfective gastroenteritis and colitis, unspecified; W19.XXXA Unspecified fall, initial encounter; M17.11 Unilateral primary osteoarthritis, right knee; I07.1 Rheumatic tricuspid insufficiency; J81.1 Chronic pulmonary edema; R09.02 Hypoxemia; I10 Essential (primary) hypertension

== ENCOUNTER 2021-11-18 16:14 | Observation (INO) ==
--- NOTE | 2021-11-18 16:30 | ED.PDOC ---
General ED Provider: Dr. KANDACE SCHNEIDER Chief Complaint: Abnormal Labs Stated Complaint: A local provider sent her to hospital for labs, when Hb found to be in 6 range, directed to check in to ER. Patient says she has no hx of anemia and has not noted any acute change in BM's. However, she is an extremely poor historian. Time Seen by Provider: 11/18/21 16:30 Mode of Arrival: Walk-In Information Source: Patient Exam Limitations: No limitations Primary Care Provider: ROSMERY GARCIA Nursing and Triage Documentation Reviewed and Agree: Yes Does patient meet sepsis criteria?: No System Inflammatory Response Syndrome: Not Applicable Sepsis Protocol: For patient's 13 years and over: Temp is 96.8 and below OR 101 and greater Pulse >90 BPM Resp >20/minute Acutely Altered Mental Status Are patient's symptoms suggestive of a new infection, such as: -Pneumonia -Skin, Soft Tissue -Endocarditis -UTI -Bone, Joint Infection -Implantable Device -Acute Abdominal Infection -Wound Infection -Meningitis -Blood Stream Catheter Infection -Unknown Miscellaneous Complaint Exam Physical Examination Complaint/Exam Onset/Duration: anemia noted today Symptoms Are: Still present Timing: Constant Location: patient not aware of anemia - poor historian Aggravating: chronically weak Review of Systems Review Of Systems Constitutional: Reports Weakness Eyes: Reports No symptoms Ears, Nose, Mouth, Throat: Reports No symptoms Respiratory: Reports No symptoms Cardiac: Reports No symptoms GI: Reports No symptoms : Reports No symptoms Musculoskeletal: Reports No symptoms Skin: Reports No symptoms Neurological: Reports No symptoms Endocrine: Reports No symptoms Hematologic/Lymphatic: Reports No symptoms All Other Systems: Reviewed and Negative [facility] Medical History (Updated 11/18/21 @ 20:38 by HYACINTH CABRERA RN) Aortic stenosis, severe Helicobacter pylori infection Hyperlipidemia Hypertension Morbid obesity Tricuspid valve regurgitation Type 2 diabetes mellitus Family History Mother Cerebrovascular accident FATHER Cancer BROTHER Diabetes Hypertension Social History Smoking and tobacco status: Former smoker Substance use type: does not use Surgical History (Updated 11/18/21 @ 20:38 by HYACINTH CABRERA RN) History of bilateral hip replacements History of right and left heart catheterization No history of previous surgery Female Reproductive History Menstrual Hx Hysterectomy: No Hx Tubal Ligation: No Physical Exam Physical Exam Appearance: Reports Other (chronically ill appearing) Ill-appearing: Moderate Pain Distress: None Eyes: Reports GEORGE ENT: Reports Oropharynx normal Neck: Supple Respiratory: Reports Airway patent and Breath sounds clear Cardiovascular: Reports RRR and Murmur (sys m c/w ) GI/: Reports Soft, Nontender and Other (hemoccult rectal ordered for the floor) Musculoskeletal: Reports Limited ROM and Limited strength Skin: Reports Warm and Dry Neurological: Reports Sensation intact, Motor intact and Alert Psychiatric: Reports Affect appropriate Critical Care Note Critical Care Note Total Critical Care Time (mins): 0 Course Course Hematology/Chemistry: 11/19/21 02:30 Orders, Labs, Meds: Lab Review 11/18/21 11/18/21 11/18/21 16:20 18:15 18:15 Reticulocyte % (Auto) 1.46 Absolute Retic 0.0213 Retic Hgb Equivalent 49.2 Iron TIBC % Saturation Ferritin 77.00 Vitamin B12 Folate 19.70 SARS CoV-2 RNA Rapid ADRIANA Negative Blood Type Antibody Screen Crossmatch ([facility]) 11/18/21 11/18/21 18:15 18:15 Reticulocyte % (Auto) Absolute Retic Retic Hgb Equivalent Iron 103.3 TIBC 263 % Saturation 39 Ferritin Vitamin B12 < 159 L Folate SARS CoV-2 RNA Rapid ADRIANA Blood Type O POSITIVE Antibody Screen Negative Crossmatch ([facility]) See Detail Orders Category Date Time Status PLACE PATIENT OBSERVATION .TO [facility] (NON-MONITORED ADMISSION 11/18/21 17:51 Active BED) OXYGEN Routine CARDIO 11/18/21 17:52 Active ACTIVITY .Up With Assistance CARE 11/18/21 17:51 Active INTAKE & OUTPUT Q8HR CARE 11/18/21 17:52 Active IP: INSERT SALINE LOCK ONCE CARE 11/18/21 17:52 Active ORDER H&H 1HR POST TRANSFUSION ONCE CARE 11/18/21 18:02 Active PRBC LEUKOREDUCED ONCE CARE 11/18/21 18:02 Active VITAL SIGNS Q4HR CARE 11/18/21 17:52 Active BMP [BASIC METABOLIC PANEL] Timed LAB 11/19/21 06:54 Ordered CBC W/ AUTO DIFF Stat LAB 11/19/21 06:54 Ordered FERRITIN Routine LAB 11/18/21 18:15 Completed FOLATE Routine LAB 11/18/21 18:15 Completed IRON AND TIBC Routine LAB 11/18/21 18:15 Completed PACKED CELLS Routine LAB 11/18/21 18:15 Completed RETIC COUNT Routine LAB 11/18/21 18:15 Completed TRANSFERRIN Routine LAB 11/18/21 18:15 Received TYPE AND SCREEN Routine LAB 11/18/21 18:15 Completed VITAMIN B12 Routine LAB 11/18/21 18:15 Completed RESUSCITATION STATUS Routine OTHERS 11/18/21 17:51 Ordered Medications Generic Name Dose Route Start Last Admin Trade Name Freq PRN Reason Stop Dose Admin Non-Formulary Medication 25 mg 11/18/21 21:52 11/18/21 23:58 Carvedilol [Coreg] PO 25 mg BID DEBBY Administration Non-Formulary Medication 10 mg 11/18/21 22:00 11/18/21 23:58 Cetirizine PO 10 mg BEDTIME DEBBY Administration Non-Formulary Medication 50 mg 11/18/21 21:55 Diclofenac Sodium PO BID PRN Pain Non-Formulary Medication 300 mg 11/19/21 09:00 Diltiazem Hcl [Cartia Xt] PO DAILY DEBBY Non-Formulary Medication 325 mg 11/19/21 09:00 Ferrous Sulfate [Iron] PO DAILY DEBBY Non-Formulary Medication 25 mg 11/19/21 09:00 Hydrochlorothiazide [Hydrochlorothiazide] PO DAILY DEBBY Non-Formulary Medication 850 mg 11/18/21 22:00 11/18/21 23:59 Metformin [Fortamet] PO 850 mg BID DEBBY Administration Non-Formulary Medication 20 mg 11/19/21 09:00 Omeprazole [Omeprazole] PO DAILY DEBBY Non-Formulary Medication 100 mg 11/19/21 08:30 Sitagliptin [Januvia] PO DAILYWM DEBBY Non-Formulary Medication 300 mg 11/18/21 22:15 11/18/21 23:58 Gabapentin [Gabapentin] PO 300 mg BEDTIME DEBBY Administration Non-Formulary Medication 75 mg 11/18/21 22:15 11/18/21 23:58 Clopidogrel [Clopidogrel] PO 75 mg BEDTIME DEBBY Administration Non-Formulary Medication 20 mg 11/18/21 22:15 11/18/21 23:58 Atorvastatin [Atorvastatin] PO 20 mg BEDTIME DEBBY Administration Non-Formulary Medication 10 meq 11/18/21 22:15 11/18/21 23:59 Potassium Chloride PO 10 meq BEDTIME DEBBY Administration Non-Formulary Medication 100 mg 11/18/21 22:15 11/18/21 23:59 Losartan [Losartan] PO 100 mg BEDTIME DEBBY Administration Sodium Chloride 1 syr 11/19/21 05:00 11/19/21 05:05 0.9% Sodium Chloride 10 Ml Disp.Syrin IVF Not Given Q8HR DEBBY Discontinued Medications Generic Name Dose Route Start Last Admin Trade Name Michaelq PRN Reason Stop Dose Admin Non-Formulary Medication 20 mg 11/18/21 22:00 11/18/21 22:23 Atorvastatin [Atorvastatin] PO Not Given DAILY DEBBY Non-Formulary Medication 75 mg 11/19/21 09:00 Clopidogrel [Clopidogrel] PO DAILY DEBBY Non-Formulary Medication 300 mg 11/19/21 09:00 Gabapentin [Gabapentin] PO DAILY DEBBY Non-Formulary Medication 100 mg 11/19/21 09:00 Losartan [Losartan] PO DAILY DEBBY Non-Formulary Medication 10 meq 11/19/21 09:00 Potassium Chloride PO DAILY DEBBY Vital Signs: Temp Pulse Resp BP Pulse Ox 11/18/21 18:27 65 135/59 L 98 11/18/21 16:15 97.6 F 61 20 109/48 L 85 L Discharge Plan Discharge Patient Disposition: ADMITTED INPATIENT Discharge Problem: Anemia ED Provider: KANDACE SCHNEIDER Condition: Good Physician Progress Note: [Anemia, suspect a slow development, no hx GI bleed, appears to be on plavix and voltaren and needs further work-up, looks like she has been Rx an iron pill daily, stool hemoccult ordered, CBC shows a macrocytic anemia suggestive of a B12 deficiency, order anemia profile. She has aortic stenosis and may be difficult to manage re: fluid status, I don't know who her photo mask cleaner is. Place in obs, order one unit blood, then check Hb, needs B12.]
[2021-11-18 18:34] LABS: ABSOLUTE RETICS # 0.0213; RETICULOCYTE % 1.46 %; RETICULOCYTE HEMOGLOBIN 49.2
[2021-11-18 18:49] LABS: IRON 103.3 ug/dL (37-170)
[2021-11-18 18:58] LABS: % IRON SATURATION 39 %; TOTAL IRON BINDING CAPACITY 263 ug/dL (261-497)
[2021-11-18 19:54] LABS: FOLATE 19.7 ng/mL
[2021-11-18 20:49] VITALS: BMI 33.8
[2021-11-18] MEDS ORDERED: CARVEDILOL 6.25 MG PO SCH (21:52)
[2021-11-18] MEDS ORDERED: METFORMIN 500 MG PO SCH (22:00)
[2021-11-18] MEDS ORDERED: ATORVASTATIN 20 MG PO SCH ×2 (22:00→22:15)
[2021-11-18] MEDS ORDERED: NON-FORMULARY MEDICATION (Gabapentin [Gabapentin] 300 MG) PO SCH (22:15)
[2021-11-18] MEDS ORDERED: POTASSIUM CHLORIDE 10 MEQ PO SCH (22:15)
[2021-11-18] MEDS ORDERED: CLOPIDOGREL 75 MG PO SCH (22:15)
[2021-11-18] MEDS ORDERED: LOSARTAN 100 MG PO SCH (22:15)
[2021-11-19 02:52] LABS: HEMATOCRIT 20.5 % (37.0-47.0); HEMOGLOBIN 6.9 g/dl (12.0-16.0)
[2021-11-19 07:36] LABS: BASOPHILS % (AUTO) 0.4 % (0.0-3.0); EOSINOPHILS # (AUTO) 0.1 K/ul (0.0-0.7); EOSINOPHILS % (AUTO) 3.6 % (0.0-7.0); HEMATOCRIT 25.6 % (37.0-47.0); HEMOGLOBIN 8.5 g/dl (12.0-16.0); IMMATURE GRANULOCYTE % (AUTO) 0.4 % (0.0-5.0); LYMPHOCYTES # (AUTO) 1.1 K/uL (0.60-3.4); LYMPHOCYTES % (AUTO) 42.7 (10.0-50.0); MEAN CORPUSCULAR HEMOGLOBIN 37.1 pg (27.0-31.0); MEAN CORPUSCULAR HGB CONC 33.2 (31.8-35.4); MONOCYTES # (AUTO) 0.2 K/uL (0.4-2.0); MONOCYTES % (AUTO) 7.1 (0-10); NEUTROPHILS # (AUTO) 1.2 K/ul (2.0-6.9); NEUTROPHILS % (AUTO) 45.8 % (42.2-75.2); PLATELET COUNT 86 10^3/uL (140-440); RDW COEFFICIENT OF VARIATION 25.6 % (11.6-14.8); RED BLOOD COUNT 2.29 10^6/ul (4.20-5.40); WHITE BLOOD COUNT 2.53 K/ul (4.6-10.2)
[2021-11-19 07:48] LABS: BLOOD UREA NITROGEN 46.9 mg/dL (7-17); CALCIUM 8.09 mg/dL (8.4-10.2); CARBON DIOXIDE 39.4 mmol/L (22-30.0); CHLORIDE 97.6 mmol/L (98-107); CREATININE 1.47 mg/dL (0.60-1.30); GLUCOSE 88.2 mg/dL (74-106); POTASSIUM 4.38 mmol/L (3.5-5.1); SODIUM 139.1 mmol/L (134.5-145)
[2021-11-19 07:59] LABS: MEAN CORPUSCULAR VOLUME 111.8 fl (81.0-99.0)
[2021-11-19 08:00] LABS: ANISOCYTOSIS 3+ (NOT PRESENT); MICROCYTOSIS 3+ (NOT PRESENT); POIKILOCYTOSIS 1+ (NOT PRESENT)
[2021-11-19 08:01] LABS: STOMATOCYTES 2+ (NOT PRESENT)
[2021-11-19] MEDS ORDERED: SITAGLIPTIN 100 MG PO SCH (08:30)
[2021-11-19] MEDS ORDERED: METFORMIN 850 MG PO SCH (08:30)
[2021-11-19] MEDS: JANUVIA PO SCH (08:40)
[2021-11-19] MEDS: HYDROCHLOROTHIAZIDE PO SCH (08:40)
[2021-11-19] MEDS: PRILOSEC PO SCH (08:40)
[2021-11-19] MEDS: COREG PO SCH ×2 (08:41→17:07)
[2021-11-19] MEDS: FERROUS SULFATE PO SCH (08:41)
[2021-11-19] MEDS ORDERED: [UNRECOGNIZED DRUG - OTHER] PO SCH (09:00)
[2021-11-19] MEDS ORDERED: DILTIAZEM HCL 180 MG PO SCH (09:00)
[2021-11-19] MEDS ORDERED: HYDROCHLOROTHIAZIDE 25 MG PO SCH (09:00)
[2021-11-19] MEDS ORDERED: COREG PO SCH (09:00)
[2021-11-19] MEDS ORDERED: OMEPRAZOLE 20 MG PO SCH (09:00)
[2021-11-19] MEDS ORDERED: LOSARTAN 100 MG PO SCH (09:00)
[2021-11-19] MEDS ORDERED: DILTIAZEM HCL 300 MG PO SCH (09:00)
[2021-11-19] MEDS ORDERED: CLOPIDOGREL 75 MG PO SCH (09:00)
[2021-11-19] MEDS ORDERED: NON-FORMULARY MEDICATION (Potassium Chloride 10 mEq tablet,ER particles/crystals) PO SCH (09:00)
[2021-11-19] MEDS ORDERED: GABAPENTIN 300 MG PO SCH (09:00)
[2021-11-19] MEDS ORDERED: NON-FORMULARY MEDICATION (Ferrous Sulfate [Iron] 325 mg (65 mg iron) Tablet) PO SCH (09:00)
[2021-11-19] MEDS: VITAMIN B-12 IM SCH (16:22)
[2021-11-19] MEDS ORDERED: MICRO-K CAP PO SCH (17:00)
[2021-11-19] MEDS: METFORMIN 850 MG PO SCH (17:08)
[2021-11-19 18:20] LABS: OCCULT BLOOD SAMPLE 1 POSITIVE (NEGATIVE)
[2021-11-19] MEDS ORDERED: COZAAR PO SCH (21:00)
[2021-11-19] MEDS ORDERED: NEURONTIN PO SCH (21:00)
[2021-11-19] MEDS ORDERED: PLAVIX PO SCH (21:00)
[2021-11-19] MEDS ORDERED: CLARITIN PO SCH (21:00)
[2021-11-19] MEDS ORDERED: LIPITOR PO SCH (21:00)
[2021-11-20 05:28] LABS: BASOPHILS % (AUTO) 0.5 % (0.0-3.0); EOSINOPHILS # (AUTO) 0.2 K/ul (0.0-0.7); EOSINOPHILS % (AUTO) 5.3 % (0.0-7.0); HEMOGLOBIN 8.7 g/dl (12.0-16.0); IMMATURE GRANULOCYTE % (AUTO) 0.8 % (0.0-5.0); LYMPHOCYTES # (AUTO) 1.1 K/uL (0.60-3.4); LYMPHOCYTES % (AUTO) 27.8 (10.0-50.0); MEAN CORPUSCULAR HEMOGLOBIN 37.8 pg (27.0-31.0); MEAN CORPUSCULAR HGB CONC 33.5 (31.8-35.4); MONOCYTES # (AUTO) 0.3 K/uL (0.4-2.0); MONOCYTES % (AUTO) 6.9 (0-10); NEUTROPHILS # (AUTO) 2.2 K/ul (2.0-6.9); NEUTROPHILS % (AUTO) 58.7 % (42.2-75.2); PLATELET COUNT 100 10^3/uL (140-440); RDW COEFFICIENT OF VARIATION 25.3 % (11.6-14.8); WHITE BLOOD COUNT 3.78 K/ul (4.6-10.2)
[2021-11-20 05:44] LABS: ALANINE AMINOTRANSFERASE 10.1 U/L (0-35); ALBUMIN 3.21 g/dL (3.5-5.0); ALKALINE PHOSPHATASE 76.9 U/L (53-141); ASPARTATE AMINO TRANSFERASE 29.2 U/L (14-36); BILIRUBIN,TOTAL 0.83 mg/dL (0.2-1.3); BLOOD UREA NITROGEN 35.7 mg/dL (7-17); CALCIUM 8.21 mg/dL (8.4-10.2); CHLORIDE 100.1 mmol/L (98-107); CREATININE 1.21 mg/dL (0.60-1.30); GLUCOSE 94.7 mg/dL (74-106); POTASSIUM 4.02 mmol/L (3.5-5.1); SODIUM 139.8 mmol/L (134.5-145); TOTAL PROTEIN 5.56 g/dL (6.3-8.2)
[2021-11-20 05:51] LABS: CARBON DIOXIDE 37.1 mmol/L (22-30.0)
[2021-11-20] MEDS: FERROUS SULFATE PO SCH (06:04)
[2021-11-20] MEDS: PRILOSEC PO SCH (06:04)
[2021-11-20] MEDS: HYDROCHLOROTHIAZIDE PO SCH (08:35)
[2021-11-20] MEDS: COREG PO SCH (08:35)
[2021-11-20] MEDS: JANUVIA PO SCH (08:35)
[2021-11-20] MEDS: VITAMIN B-12 IM SCH (08:35)
[2021-11-20] MEDS: METFORMIN 850 MG PO SCH (08:41)
[2021-11-20] MEDS ORDERED: DILTIAZEM HCL 300 MG PO SCH (09:00)
[2021-11-20 09:45] VITALS: BP 122/49; TEMP 97.5
--- NOTE | 2021-11-20 12:18 | ECHO2D ---
Date of Exam: 11/20/2021 Ordering Physician: HOSPITALIST--JENNIE/Lida GARCIA APRN, [facility] Room #: 103 Reason for Echo: HYPERLIPIDEMIA, HTN, TRICUSPID VALVE REGURGITATION, AORTIC STENOSIS, MURMUR M-Mode Normal Adult Results LV Dimensions Normal Adult Results AoV Opening excursions >1.6 >1.6 LVEDD-base- 3.5-5.8 6.4 Ao root dimensions 2.0-3.7 3.3 LVESD-base- 3.1-4.6 L. Atrium dimensions 1.9-3.8 5.0 Post. Wall thickness 0.8-1.1 1.3 IV septum (thickness) 0.7-1.2 1.2 Post. Wall excursion 0.72-1.3 NORMAL Septal motion NORMAL Systolic motion R. Ventricular cavity 1.5-2.0 3.0 LVEF 60% 64% Paradoxical septal wall motion NORMAL 2-D : ENLARGED RIGHT VENTRICLE, LEFT ATRIAL AND LEFT VENTRICLE CAVITIES--NORMAL LEFT VENTRICLE CONTRACTILITY--NO EFFUSION, NO THROMBUS, CALCIFIC MITRAL VALVE ANNULUS M-MODE: MV: CALCIFIC MITRAL VALVE ANNULUS AV: NORMAL TV: NORMAL PV: NORMAL CHAMBER SIZE: ENLARGED RIGHT VENTRICLE, LEFT ATRIAL AND LEFT VENTRICLE CAVITIES WALL MOTION: NORMAL PERICARDIUM: NORMAL INTERPRETATION: 1. LEFT VENTRICLE HYPERTROPHY 2. ENLARGED RIGHT VENTRICLE, LEFT ATRIAL AND LEFT VENTRICLE CAVITIES 3. NORMAL LEFT VENTRICLE CONTRACTILITY 4. CALCIFIC MITRAL VALVE ANNULUS 5. SEVERE TRICUSPID REGURGITATION MTDD
[2021-11-20 16:09] LABS: OCCULT BLOOD SAMPLE 2 NO SPECIMEN RECEIVED (NEGATIVE); OCCULT BLOOD SAMPLE 3 NO SPECIMEN RECEIVED (NEGATIVE)
--- NOTE | 2021-11-23 09:53 | HP ---
DATE OF SERVICE: 11/18/21 SUBJECTIVE: This is a 71 year old female patient presented to the emergency room yesterday on recommendation from their primary care provider because of unknown anemia. The patient had a hgb of 6.9 in the ER. Her B12 level was less than 159 and serum iron was reportedly normal. The patient was subsequently admitted to the hospital for transfusion of packed red blood cells, followup H&H and further evaluation as deemed indicated. PAST MEDICAL HISTORY: She past history of other significant illnesses. She states that she had not had a previous screening colonoscopy. Access to the computer system is limited due to a technical problem therefore I an unable to review of previous chart. ALLERGIES: NO known drug allergies. PHYSICAL EXAMINATION: VITALS: Blood pressure 127/52, pulse 53, respiratory rate 18. GENERAL: The patient is presently pleasant, alert and cooperative and oriented times three. SKIN: Warm and dry. EYES: Conjunctiva is slightly pale. Pupils equal and reactive to light. Extra ocular movements are intact. EOMI is normal. NECK: Supple not adenopathy. No pleasurable bruit on auscultation. Carotid arteries CHEST: Symmetrical LUNGS: Clear to auscultation in all vieyra without wheezing, rales or rhonchi CARDIO: Regular rate and rhythm with a grade II/ systolic murmurs this is heard best along the left sternal border. ABDOMEN: Soft, Without tenderness, masses, organomegaly. EXTREMITIES: No clubbing, no cyanosis or edema. IMPRESSION: 1. Symptomatic anemia 2. Pernicious anemia with low B12 level 3. Hypertension 4. Type II diabetes 5. GERD PLAN: 1. Review the patient's medications 2. Continue with Januvia 100mg daily 3. Gabapentin 300mg HS daily 4. Plavix 75mg HS daily 5. Metformin 850mg BID 6. Diltiazem XT 300mg Q daily 7. Claritin 10mg Q daily 8. Coreg 25mg BID 9. We will administer B12 1000 micrograms today 10.Repeat Labs in the AM 11.Further evaluation of treatment as deemed MTDD
--- NOTE | 2021-12-05 04:03 | PCM.DC ---
Final Diagnosis: Discharge diagnosis: Anemia requiring blood transfusion. B12 deficiency resulting in pernicious anemia. Iron deficiency from GI blood loss. Admit date - 11/18/21. Discharge date - 11/20/21 Physical Exam Appearance: Well-appearing Ill-appearing: None Pain Distress: None Eyes: GEORGE ENT: Oropharynx normal Neck: Supple Respiratory: Airway patent, Breath sounds clear and Breath sounds equal Cardiovascular: RRR and Pulses normal GI/: Soft and Nontender Musculoskeletal: Normal strength and ROM intact Skin: Dry Neurological: Sensation intact and Motor intact Psychiatric: Affect appropriate and Mood appropriate (1) Pernicious anemia: Status: Acute Code(s): D51.0 - Vitamin B12 deficiency anemia due to intrinsic factor deficiency SNOMED Code(s): 73233715 (2) GI bleeding: Status: Acute Code(s): K92.2 - Gastrointestinal hemorrhage, unspecified SNOMED Code(s): 97094088 (3) Iron deficiency anemia secondary to blood loss (chronic): Status: Acute Code(s): D50.0 - Iron deficiency anemia secondary to blood loss (chronic) SNOMED Code(s): 953656902 Reason for Hospitalization: Hemoglobin of 6.6 requiring transfusion of blood. Prognosis/Condition at Discharge: Good. Stable. Medications at Discharge: Ambulatory Orders Medication Instructions Recorded carvedilol 6.25 mg tablet (Coreg) 25 mg PO BID 04/02/15 losartan 100 mg tablet 100 mg PO DAILY 04/02/15 atorvastatin 20 mg tablet 20 mg PO DAILY 10/24/19 gabapentin 300 mg capsule 300 mg PO DAILY 10/24/19 potassium chloride 10 mEq 10 meq PO DAILY 10/24/19 tablet,extended release(part/cryst) sitagliptin 100 mg tablet (Januvia) 100 mg PO DAILYWM 10/24/19 cetirizine 10 mg tablet 10 mg PO BEDTIME 11/18/21 ferrous sulfate 325 mg (65 mg 325 mg PO DAILY 11/18/21 iron) tablet (iron) hydrochlorothiazide 25 mg tablet 25 mg PO DAILY 11/18/21 omeprazole 20 mg capsule,delayed 20 mg PO DAILY 11/18/21 release diltiazem HCl 300 mg capsule,24 300 mg PO DAILY 11/19/21 hr,extended release metformin 850 mg tablet 850 mg PO BID 11/19/21 Lab/Diagnostics: Laboratory Tests 11/18/21 11/18/21 11/18/21 16:20 18:15 18:15 WBC RBC Hgb Hct MCV MCH MCHC RDW Coeff of Guzman Plt Count Immature Gran % (Auto) Neut % (Auto) Lymph % (Auto) [place] % (Auto) Eos % (Auto) Baso % (Auto) Reticulocyte % (Auto) 1.46 Neut # (Auto) Lymph # (Auto) [place] # (Auto) Eos # (Auto) Baso # (Auto) Immature Gran # (Auto) Poikilocytosis Anisocytosis Microcytosis Stomatocytes Absolute Retic 0.0213 Retic Hgb Equivalent 49.2 Sodium Potassium Chloride Carbon Dioxide Anion Gap BUN Creatinine Estimated GFR (MDRD) BUN/Creatinine Ratio Glucose Calcium Iron TIBC % Saturation Transferrin Ferritin 77.00 Total Bilirubin AST ALT Alkaline Phosphatase Total Protein Albumin Globulin Albumin/Globulin Ratio Vitamin B12 Folate 19.70 Stl Occult Blood (IFOB) Stool Occult Blood #2 Stool Occult Blood #3 SARS CoV-2 RNA Rapid ADRIANA Negative Blood Type Antibody Screen Crossmatch ([facility]) 11/18/21 11/18/21 11/18/21 18:15 18:15 18:15 WBC RBC Hgb Hct MCV MCH MCHC RDW Coeff of Guzman Plt Count Immature Gran % (Auto) Neut % (Auto) Lymph % (Auto) [place] % (Auto) Eos % (Auto) Baso % (Auto) Reticulocyte % (Auto) Neut # (Auto) Lymph # (Auto) [place] # (Auto) Eos # (Auto) Baso # (Auto) Immature Gran # (Auto) Poikilocytosis Anisocytosis Microcytosis Stomatocytes Absolute Retic Retic Hgb Equivalent Sodium Potassium Chloride Carbon Dioxide Anion Gap BUN Creatinine Estimated GFR (MDRD) BUN/Creatinine Ratio Glucose Calcium Iron 103.3 TIBC 263 % Saturation 39 Transferrin 181 L Ferritin Total Bilirubin AST ALT Alkaline Phosphatase Total Protein Albumin Globulin Albumin/Globulin Ratio Vitamin B12 < 159 L Folate Stl Occult Blood (IFOB) Stool Occult Blood #2 Stool Occult Blood #3 SARS CoV-2 RNA Rapid ADRIANA Blood Type O POSITIVE Antibody Screen Negative Crossmatch ([facility]) See Detail 11/19/21 11/19/21 11/19/21 02:30 07:31 07:31 WBC 2.53 L RBC 2.29 L Hgb 6.9 L 8.5 L Hct 20.5 L 25.6 L MCV 111.8 H D MCH 37.1 H MCHC 33.2 RDW Coeff of Guzman 25.6 H Plt Count 86 L Immature Gran % (Auto) 0.4 Neut % (Auto) 45.8 Lymph % (Auto) 42.7 [place] % (Auto) 7.1 Eos % (Auto) 3.6 Baso % (Auto) 0.4 Reticulocyte % (Auto) Neut # (Auto) 1.2 L Lymph # (Auto) 1.1 [place] # (Auto) 0.2 L Eos # (Auto) 0.1 Baso # (Auto) 0.0 Immature Gran # (Auto) 0.0 Poikilocytosis 1+ Anisocytosis 3+ Microcytosis 3+ Stomatocytes 2+ Absolute Retic Retic Hgb Equivalent Sodium 139.1 Potassium 4.38 Chloride 97.6 L Carbon Dioxide 39.4 H Anion Gap 6.48 BUN 46.9 H Creatinine 1.47 H Estimated GFR (MDRD) 35.00 BUN/Creatinine Ratio 31.90 Glucose 88.2 Calcium 8.09 L Iron TIBC % Saturation Transferrin Ferritin Total Bilirubin AST ALT Alkaline Phosphatase Total Protein Albumin Globulin Albumin/Globulin Ratio Vitamin B12 Folate Stl Occult Blood (IFOB) Stool Occult Blood #2 Stool Occult Blood #3 SARS CoV-2 RNA Rapid ADRIANA Blood Type Antibody Screen Crossmatch ([facility]) 11/19/21 11/20/21 11/20/21 18:02 05:22 05:22 WBC 3.78 L RBC 2.30 L Hgb 8.7 L Hct 26.0 L MCV 113.0 H MCH 37.8 H MCHC 33.5 RDW Coeff of Guzman 25.3 H Plt Count 100 L Immature Gran % (Auto) 0.8 Neut % (Auto) 58.7 Lymph % (Auto) 27.8 [place] % (Auto) 6.9 Eos % (Auto) 5.3 Baso % (Auto) 0.5 Reticulocyte % (Auto) Neut # (Auto) 2.2 Lymph # (Auto) 1.1 [place] # (Auto) 0.3 L Eos # (Auto) 0.2 Baso # (Auto) 0.0 Immature Gran # (Auto) 0.0 Poikilocytosis Anisocytosis Microcytosis Stomatocytes Absolute Retic Retic Hgb Equivalent Sodium 139.8 Potassium 4.02 Chloride 100.1 Carbon Dioxide 37.1 H Anion Gap 6.62 BUN 35.7 H Creatinine 1.21 Estimated GFR (MDRD) 44.00 BUN/Creatinine Ratio 29.50 Glucose 94.7 Calcium 8.21 L Iron TIBC % Saturation Transferrin Ferritin Total Bilirubin 0.83 AST 29.2 ALT 10.1 Alkaline Phosphatase 76.9 Total Protein 5.56 L Albumin 3.21 L Globulin 2.35 Albumin/Globulin Ratio 1.36 Vitamin B12 Folate Stl Occult Blood (IFOB) Positive Stool Occult Blood #2 No specimen received Stool Occult Blood #3 No specimen received SARS CoV-2 RNA Rapid ADRIANA Blood Type Antibody Screen Crossmatch ([facility]) Follow-ups: PCP when d/c. Discharge Disposition: Home Hospital Course: Admitted with Hb 6.6 found on routine labs ordered by PCP. On exam, had hem pos stool, but no signs of active bleeding. Presumed slow GI blood loss and iron def. However, labs also revealed a severe B12 deficiency causing a pernicious an emia. After being transfused 2 units of blood, Hb 8.7. Started on B12 shots and iron pills. This discharge done as a [id number] exam and completed documentation required a total of 40 minutes. Plan: Follow-up with PCP. Recommend B12 injections (1 mg) daily for a week, weekly for a month, then monthly for life. Continue iron med. as before. Rec. GI referral for the occult GI blood loss. Hold plavix and other barrier breakers pending follow-up. PPI.
== END 2021-11-20 15:41 | disposition home or self-care (01) ==
LOC: ED 16:14 → MEDSURG A 19:50 → INTOOBSV 19:50 → MEDSURG A 19:59
PROVIDERS: ADMIT Emergency Medicine; ATTEND Emergency Medicine
DX: Z51.81 Encounter for therapeutic drug level monitoring; K21.9 Gastro-esophageal reflux disease without esophagitis; D50.0 Iron deficiency anemia secondary to blood loss (chronic); E11.9 Type 2 diabetes mellitus without complications; D51.0 Vitamin B12 deficiency anemia due to intrinsic factor deficiency; I10 Essential (primary) hypertension; K92.2 Gastrointestinal hemorrhage, unspecified; Z79.899 Other long term (current) drug therapy; I35.0 Nonrheumatic aortic (valve) stenosis; R53.1 Weakness; I36.1 Nonrheumatic tricuspid (valve) insufficiency; Z20.822 Contact with and (suspected) exposure to COVID-19; I34.8 Other nonrheumatic mitral valve disorders; I51.7 Cardiomegaly

== ENCOUNTER 2023-11-28 18:53 | Observation (INO) ==
[2023-11-28] MEDS: MORPHINE 2 MG/ML SYRINGE IM ONE (19:34)
--- NOTE | 2023-11-28 19:47 | ED.PDOC ---
General ED Provider: Dr. EDWARD RAND Chief Complaint: Fall Stated Complaint: Patient is a 73-year-old female who states that she fell while trying to feed her cat. She thinks she stumbled forward but then finally landed on her right hip. She only complains of right hip pain. Denies any other symptoms. She is able to ambulate to the EMS cart without difficulty according to EMS report. She has had bilateral hip replacements in the past. She has no pain without moving back to the time she moves she has pain 10 out of 10 On the right hip. Denies hitting her head. Time Seen by Provider: 11/28/23 18:57 Mode of Arrival: Ambulance Information Source: Patient, EMT and Other (daughter ) Primary Care Provider: ROSMERY GARCIA Nursing and Triage Documentation Reviewed and Agree: Yes What is Opioid Naive?: *Opioid Naive implies the patient is not already taking opioids or not chronically receiving opioids on a daily basis. *PRN dosing is not "usually" associated with tolerance. *Patients are at higher risk of over-sedation and aspiration. What is Opioid Tolerant?: *Opioid Tolerance implies less than the expected response to an opioid. *Acquired tolerance is defined by the patient taking 60mg of oral morphine daily (or equianalgesic dose of another opioid) for 1 week or more. *Often associated with chronic pain. *May take more than usual dose to achieve desired pain control. Trauma/Injury Complaint Exam Trauma Complaint/Exam Location of Pain or Injury: Reports Other (right hip ) Mechanism of Injury: Reports Fall Onset/Duration: just prior to arrival Symptoms Are: Still present Initial Severity: Severe Current Severity: Severe (only with she moves it ) Character: Reports Sharp Aggravating: Reports Movement Associated Signs and Symptoms: Denies LOC, Confusion, Memory loss, Lethargy, Vomiting, Bleeding, Bruising, Swelling, Extremity disuse, Painful respiration, Hoarseness, Dysphagia, Hemoptysis or Significant blood loss Glascow Coma Scale (see protocol): 15 Trauma Findings: Present Pelvic tenderness Skin Findings: Present Normal findings Differential Diagnoses: Contusions, Fracture and Dislocation Body Picture: 2 1. tenderness to palpation Review of Systems Review Of Systems Constitutional: Reports No symptoms Musculoskeletal: Reports Joint pain Neurological: Reports Anxiety All Other Systems: Reviewed and Negative [facility] Medical History (Updated 11/28/23 @ 22:32 by EDWARD RAND MD) Helicobacter pylori infection 03/23/2015 A04.8 - Other specified bacterial intestinal infections (ICD-10) Family History Mother Cerebrovascular accident FATHER Cancer Pt. unsure of type BROTHER Diabetes Hypertension Social History Smoking and tobacco status: Former smoker Substance use type: does not use Surgical History No history of previous surgery History of right and left heart catheterization Z98.890 - Other specified postprocedural states (ICD-10) History of bilateral hip replacements Z96.643 - Presence of artificial hip joint, bilateral (ICD-10) Female Reproductive History Menstrual Hx Hysterectomy: No Hx Tubal Ligation: No Physical Exam Physical Exam Appearance: Reports Well-appearing and Ill-appearing Eyes: Reports GEORGE and EOMI Respiratory: Reports Airway patent and Breath sounds clear Cardiovascular: Reports RRR, Pulses normal and No rub Musculoskeletal: Reports Normal strength and Limited ROM Skin: Reports Warm and Dry Neurological: Reports Motor intact, Alert and Oriented Psychiatric: Reports Anxious Interpretation Radiology Interpretation Radiology Interpretation By: Radiologist Radiology Results: Positive (1. Bilateral total hip arthroplasty. The prosthetic units lead to artifact limiting image quality. 2. There is cortical discontinuity of the upper lateral femur concerning for an acute fracture. The femoral prosthetic component remains in place without dislodgement as does the acetabular compone) Exam Interpreted: CT Scan Radiology Interpretation By: Radiologist Radiology Results: Negative Exam Interpreted: CT Scan (1. No acute osseous abnormality of the lumbar spine. 2. Degenerative changes. 3. Small chronic appearing right pleural effusion.) Physician Notification Case Discussed Physician Notified: DR JEAN Time of Notification: 21:55 (Recommended admission for 50% weight bearing with pain control and physical therapy and follow-up with this clinic upon discharge.) Physician Notified: Notified hospitalist of admission and consultation to orthopedics. Time of Notification: 22:20 (Amor Quevedo hospitalist was agreeable to admission after negative CT head.) Critical Care Note Critical Care Note Total Critical Care Time (mins): 0 Comments: Patient states that her pain is much improved after IM morphine. Course Course 11/28/23 21:24 11/28/23 21:24 Orders, Labs, Meds: Lab Review 11/28/23 11/28/23 11/28/23 21:24 21:25 21:52 WBC 15.17 H RBC 3.91 L Hgb 11.3 L Hct 36.9 L MCV 94.4 MCH 28.9 MCHC 30.6 L RDW Coeff of Guzman 13.5 Plt Count 257 Immature Gran % (Auto) 0.6 Neut % (Auto) 83.4 H Lymph % (Auto) 10.1 [place] % (Auto) 5.3 Eos % (Auto) 0.3 Baso % (Auto) 0.3 Neut # (Auto) 12.7 H Lymph # (Auto) 1.5 [place] # (Auto) 0.8 Eos # (Auto) 0.1 Baso # (Auto) 0.0 Immature Gran # (Auto) 0.1 Sodium 140.0 Potassium 4.21 Chloride 102.0 Carbon Dioxide 33.7 H Anion Gap 8.51 BUN 29.7 H Creatinine 1.08 Estimated GFR (MDRD) 50.00 BUN/Creatinine Ratio 27.50 Glucose 130.0 H Calcium 9.11 Total Bilirubin 0.59 AST 46.9 H ALT 18.1 Alkaline Phosphatase 143.3 H Total Protein 7.61 Albumin 4.24 Globulin 3.37 Albumin/Globulin Ratio 1.25 Urine Color Yellow Urine Clarity Clear Urine pH 7.0 Ur Specific [place] 1.020 Urine Protein Trace H Urine Glucose (UA) Negative Urine Ketones Negative Urine Blood Negative Urine Nitrite Negative Urine Bilirubin Negative Urine Urobilinogen 2.0 H Ur Leukocyte Esterase Trace H Urine Microscopic RBC 2-5 Urine Microscopic WBC 2-5 Ur Squamous Epith Cells 0-2 Urine Bacteria Trace SARS CoV-2 RNA Rapid ADRIANA Negative Orders Category Date Time Status ADMIT OBSERVATION [PLACE PATIENT OBSERVATION] .TO ADMISSION 11/28/23 22:27 Ordered MEDSURG (NON-MONITORED BED) Saline Lock [ED IV/MEDIPORT/POWERPORT] .ONCE EMERGENCY 11/28/23 19:12 Active CBC W/ AUTO DIFF Stat LAB 11/28/23 21:24 Completed CMP [COMPREHENSIVE METABOLIC PANEL] Stat LAB 11/28/23 21:24 Completed SARS COV-2 RNA RAPID ADRIANA Stat LAB 11/28/23 21:25 Completed URINALYSIS C & S IF INDICATED Stat LAB 11/28/23 21:52 Completed 0.9 % Sodium Chloride [Saline Flush] Meds 03/11/24 19:12 Active 1 syr IVF PRN PRN Morphine Sulfate [Morphine 2 mg/ml Syringe] Meds 11/28/23 19:28 Discontinued 2 mg IM ONCE ONE Morphine Sulfate [Morphine 2 mg/ml Syringe] Meds 11/28/23 19:13 Discontinued [address] ONCE ONE [address] HEAD W/O CONTRAST Stat RADS 11/28/23 22:[address] LUMBAR SPINE W/O CONTRAST Stat RADS 11/28/23 19:[address] PELVIS W/O CONTRAST Stat RADS 11/28/23 19:13 Completed Medications Generic Name Dose Route Start Last Admin Trade Name Freq PRN Reason Stop Dose Admin Sodium Chloride 1 syr 11/28/23 19:12 0.9% Sodium Chloride 10 Ml Disp.Syrin IVF PRN PRN To flush IV Discontinued Medications Generic Name Dose Route Start Last Admin Trade Name Freq PRN Reason Stop Dose Admin Morphine Sulfate 2 mg 11/28/23 19:13 11/28/23 20:09 Morphine Sulfate 2 Mg/Ml Syringe IVP 11/28/23 19:14 Not Given ONCE ONE Morphine Sulfate 2 mg 11/28/23 19:28 11/28/23 19:34 Morphine Sulfate 2 Mg/Ml Syringe IM 11/28/23 19:29 2 mg ONCE ONE Administration Vital Signs: Temp Pulse Resp BP Pulse Ox 11/28/23 19:07 98.0 F 70 16 180/73 H 98 Discharge Plan Discharge Patient Disposition: PLACED OBSERVATION Discharge Problem: Closed right femoral fracture Qualifiers: Encounter type: initial encounter Femur location: unspecified portion of femur Fracture morphology: other fracture Qualified Code(s): S72.8X1A - Other fracture of right femur, initial encounter for closed fracture Prescriptions: No Action carvedilol [Coreg] 6.25 MG tablet 12.5 mg PO BID losartan 100 MG tablet 100 mg PO BEDTIME gabapentin 300 mg capsule 300 mg PO DAILY atorvastatin 20 mg tablet 20 mg PO BEDTIME Januvia 100 mg tablet 100 mg PO DAILYWM potassium chloride 10 mEq tablet,ER particles/crystals 10 meq PO BEDTIME cetirizine 10 mg tablet 10 mg PO BEDTIME omeprazole 20 mg capsule,delayed release(DR/EC) 20 mg PO DAILY hydrochlorothiazide 25 mg tablet 25 mg PO BEDTIME metformin 850 mg Tablet 850 mg PO BID diltiazem HCl 300 mg Capsule,Extended Release 24 Hr 300 mg PO DAILY clopidogrel 75 mg tablet 75 mg PO DAILY famotidine 20 mg tablet 20 mg PO DAILY furosemide 20 mg tablet 20 mg PO DAILY Did you review [place] ACCOUNT EXECUTIVE for ALL controlled substances?: Not Applicable ED Provider: EDWARD RAND Condition: Stable Physician Progress Note: []
--- NOTE | 2023-11-28 20:07 | CT ---
EXAM: CT PELVIS HISTORY: Fall, right hip pain TECHNIQUE: CT pelvis without contrast. Multiplanar images. FINDINGS: Bilateral total hip arthroplasty. The prosthetic units lead to artifact limiting image qu ality. There is cortical discontinuity of the upper lateral femur concerning for an acute fracture. The femoral prosthetic component remains in place without dislodgement as does the acetabular compon ent. No clear evidence of the acetabular or pubic bone fracture. No acute upper left femoral abnorm ality. Sacroiliac joints are intact. There is no muscular or peripheral soft tissue hematoma seen. Intrapelvic structures are within normal limits. No ascites. IMPRESSION: 1. Bilateral total hip arthroplasty. The prosthetic units lead to artifact limiting image quality. 2. There is cortical discontinuity of the upper lateral femur concerning for an acute fracture. The femoral prosthetic component remains in place without dislodgement as does the acetabular component. 3. No additional fractures suggested. 4. No hematoma identified. - - - - - All CT scans are performed using dose optimization techniques as appropriate to the performed exam an d include at least one of the following: Automated exposure control, adjustment of the mA and/or kV according t o size, and the use of iterative reconstruction technique.
[2023-11-28] MEDS: MORPHINE 2 MG/ML SYRINGE IVP ONE (20:09)
--- NOTE | 2023-11-28 20:18 | CT ---
EXAM: CT LUMBAR SPINE HISTORY: Lower back pain TECHNIQUE: CT lumbar spine without contrast. 3-mm axial sections. Coronal and sagittal reformation s. FINDINGS: COMPARISON: FINDINGS: Bones appear demineralized. No fracture is identified. Vertebral body heights are normal and there is no spondylolisthesis. Sacroiliac joints are intact with mild to moderate arthritis. T here is diffuse degenerative disc and facet disease becoming at least moderate in degree in the lower lumbar spine and lumbosacral junction and there is at least mild central canal and bilateral neural foraminal narrowing. Incidental note of a small chronic appearing right pleural effusion with adjace nt consolidation likely related atelectasis. Atherosclerotic disease IMPRESSION: 1. No acute osseous abnormality of the lumbar spine. 2. Degenerative changes. 3. Small chronic appearing right pleural effusion. - - - - - All CT scans are performed using dose optimization techniques as appropriate to the performed exam an d include at least one of the following: Automated exposure control, adjustment of the mA and/or kV according t o size, and the use of iterative reconstruction technique.
[2023-11-28 21:30] LABS: BASOPHILS % (AUTO) 0.3 % (0.0-3.0); EOSINOPHILS # (AUTO) 0.1 K/ul (0.0-0.7); EOSINOPHILS % (AUTO) 0.3 % (0.0-7.0); HEMATOCRIT 36.9 % (37.0-47.0); HEMOGLOBIN 11.3 g/dl (12.0-16.0); IMMATURE GRANULOCYTE # (AUTO) 0.1 (0.0-1.0); IMMATURE GRANULOCYTE % (AUTO) 0.6 % (0.0-5.0); LYMPHOCYTES # (AUTO) 1.5 K/uL (0.60-3.4); LYMPHOCYTES % (AUTO) 10.1 (10.0-50.0); MEAN CORPUSCULAR HEMOGLOBIN 28.9 pg (27.0-31.0); MEAN CORPUSCULAR HGB CONC 30.6 (31.8-35.4); MEAN CORPUSCULAR VOLUME 94.4 fl (81.0-99.0); MONOCYTES # (AUTO) 0.8 K/uL (0.4-2.0); MONOCYTES % (AUTO) 5.3 (0-10); NEUTROPHILS # (AUTO) 12.7 K/ul (2.0-6.9); NEUTROPHILS % (AUTO) 83.4 % (42.2-75.2); PLATELET COUNT 257 10^3/uL (140-440); RDW COEFFICIENT OF VARIATION 13.5 % (11.6-14.8); RED BLOOD COUNT 3.91 10^6/ul (4.20-5.40); WHITE BLOOD COUNT 15.17 K/ul (4.6-10.2)
[2023-11-28 21:46] LABS: ALANINE AMINOTRANSFERASE 18.1 U/L (0-35); ALBUMIN 4.24 g/dL (3.5-5.0); ALKALINE PHOSPHATASE 143.3 U/L (53-141); ASPARTATE AMINO TRANSFERASE 46.9 U/L (14-36); BILIRUBIN,TOTAL 0.59 mg/dL (0.2-1.3); BLOOD UREA NITROGEN 29.7 mg/dL (7-17); CALCIUM 9.11 mg/dL (8.4-10.2); CARBON DIOXIDE 33.7 mmol/L (22-30.0); CREATININE 1.08 mg/dL (0.60-1.30); POTASSIUM 4.21 mmol/L (3.5-5.1); TOTAL PROTEIN 7.61 g/dL (6.3-8.2)
[2023-11-28 21:51] LABS: SARS COV-2 RNA RAPID NAAT NEGATIVE (NEGATIVE)
[2023-11-28 21:59] LABS: BILIRUBIN,URINE Negative (NEGATIVE); CLARITY,URINE Clear (CLEAR); COLOR,URINE Yellow (YELLOW); GLUCOSE, URINE (UA) Negative (NEGATIVE); KETONES,URINE Negative (NEGATIVE); LEUKOCYTE ESTERASE ,URINE Trace (NEGATIVE); NITRITE,URINE Negative (NEGATIVE); PROTEIN,URINE Trace (NEGATIVE); URINE, BLOOD Negative (NEGATIVE)
[2023-11-28 22:13] LABS: SQUAMOUS EPITHELIAL CELL,UR 0-2 (0-5)
[2023-11-28 22:14] LABS: BACTERIA,URINE TRACE (NOT PRESENT)
[2023-11-28] MEDS ORDERED: HUMULIN R SUBCUT PRN (22:49)
[2023-11-28] MEDS ORDERED: ZOFRAN 4 MG/2 ML IVP PRN (22:49)
[2023-11-28] MEDS ORDERED: MORPHINE 2 MG/ML SYRINGE IVP PRN (22:49)
[2023-11-28] MEDS ORDERED: TYLENOL PO PRN (22:49)
--- NOTE | 2023-11-28 23:26 | CT ---
EXAM: CT HEAD WITHOUT CONTRAST TECHNIQUE: Noncontrast CT of the head with multiple reformats. HISTORY: Fall. COMPARISON: None. FINDINGS: No evidence of acute infarction, hemorrhage, or mass. Mild brain volume loss. Mild chronic microvascular changes of the white matter. Atherosclerotic calcifications of the carotid siphons and vertebral arteries. No brain herniation. Patent basilar cisterns. Ventricles are proportional to brain volume. No acute osseous abnormality. Seven of the right maxillary sinus with sinusitis including mucoperiosteal thickening/sclerosis and p artial atelectasis. Bilateral lens replacements of the globes. IMPRESSION: No acute intracranial abnormality. Chronic and sinus findings as above. All CT scans are performed using dose optimization techniques as appropriate to the performed exam an d include at least one of the following: Automated exposure control, adjustment of the mA and/or kV according t o size, and the use of iterative reconstruction technique.
[2023-11-28] MEDS: NORCO 5-325 PO PRN (23:59)
[2023-11-29 00:41] VITALS: BMI 32.4
[2023-11-29 05:10] LABS: BASOPHILS % (AUTO) 0.2 % (0.0-3.0); EOSINOPHILS % (AUTO) 0.3 % (0.0-7.0); HEMATOCRIT 31.4 % (37.0-47.0); HEMOGLOBIN 9.7 g/dl (12.0-16.0); IMMATURE GRANULOCYTE % (AUTO) 0.4 % (0.0-5.0); LYMPHOCYTES # (AUTO) 1.8 K/uL (0.60-3.4); LYMPHOCYTES % (AUTO) 16.9 (10.0-50.0); MEAN CORPUSCULAR HGB CONC 30.9 (31.8-35.4); MONOCYTES % (AUTO) 8.8 (0-10); NEUTROPHILS % (AUTO) 73.4 % (42.2-75.2); PLATELET COUNT 209 10^3/uL (140-440); RDW COEFFICIENT OF VARIATION 13.7 % (11.6-14.8); RED BLOOD COUNT 3.34 10^6/ul (4.20-5.40); WHITE BLOOD COUNT 10.83 K/ul (4.6-10.2)
[2023-11-29 05:25] LABS: ALANINE AMINOTRANSFERASE 16.6 U/L (0-35); ALBUMIN 3.5 g/dL (3.5-5.0); ASPARTATE AMINO TRANSFERASE 31.9 U/L (14-36); BILIRUBIN,TOTAL 0.51 mg/dL (0.2-1.3); BLOOD UREA NITROGEN 29.3 mg/dL (7-17); CALCIUM 8.79 mg/dL (8.4-10.2); CHLORIDE 100.3 mmol/L (98-107); CREATININE 0.89 mg/dL (0.60-1.30); GLUCOSE 112.3 mg/dL (74-106); POTASSIUM 4.12 mmol/L (3.5-5.1); SODIUM 138.2 mmol/L (134.5-145); TOTAL PROTEIN 6.39 g/dL (6.3-8.2)
[2023-11-29] MEDS ORDERED: DILTIAZEM HCL 300 MG PO SCH (09:15)
--- NOTE | 2023-11-29 09:23 | PCM.SS ---
Provider Provider: CARLOS EVANGELISTA, [facility] Admission Date Admission Date: 11/28/23 Discharge Date Discharge Date: 11/29/23 Primary Care Physician Primary Care Physician: ROSMERY GARCIA Chief Complaint Reason For Visit: RIGHT FEMUR FRACTURE History of Present Illness History of Present Illness: Admitted 11/28/23 23:02, this 73 year old /WHITE/F presented to the ER last night after a ground level fall to her R hip while feeding her cats. Lives at home with boyfriend. Denies any other pain or injuries. She has been taking her ordered pain medication and reports that the pain is much better and tolerable. Able to ambulate partial weight bearing while getting up to the bedside commode. Admitted observation for pain control. [facility] Medical History Helicobacter pylori infection 03/23/2015 A04.8 - Other specified bacterial intestinal infections (ICD-10) Surgical History No history of previous surgery History of right and left heart catheterization Z98.890 - Other specified postprocedural states (ICD-10) History of bilateral hip replacements Z96.643 - Presence of artificial hip joint, bilateral (ICD-10) Family History Mother Cerebrovascular accident FATHER Cancer Pt. unsure of type BROTHER Diabetes Hypertension Social History Smoking and tobacco status: Former smoker Substance use type: does not use Medications Mecications: Medications at Discharge (Home Meds & RX) carvedilol 6.25 mg tablet (Coreg) 12.5 mg PO BID 04/02/15 losartan 100 mg tablet 100 mg PO BEDTIME 04/02/15 atorvastatin 20 mg tablet 20 mg PO BEDTIME 10/24/19 gabapentin 300 mg capsule 300 mg PO DAILY 10/24/19 potassium chloride 10 mEq tablet,extended release(part/cryst) 10 meq PO BEDTIME 10/24/19 sitagliptin phosphate 100 mg tablet (Januvia) 100 mg PO DAILYWM 10/24/19 cetirizine 10 mg tablet 10 mg PO BEDTIME 11/18/21 hydrochlorothiazide 25 mg tablet 25 mg PO BEDTIME 11/18/21 omeprazole 20 mg capsule,delayed release 20 mg PO DAILY 11/18/21 diltiazem HCl 300 mg capsule,24 hr,extended release 300 mg PO DAILY 11/19/21 metformin 850 mg tablet 850 mg PO BID 11/19/21 clopidogrel 75 mg tablet 75 mg PO DAILY 07/26/22 famotidine 20 mg tablet 20 mg PO DAILY 07/26/22 furosemide 20 mg tablet 20 mg PO DAILY 07/26/22 Allergies Allergies Allergy/AdvReac Type Severity Reaction Status Date / Time No Known Allergies Allergy Verified 11/28/23 19:07 Review of Systems Constitutional: Reports No symptoms Head: Reports Normocephalic and Atraumatic Eyes: Reports No symptoms Ears: Reports No symptoms Nose: Reports No symptoms Mouth: Reports No symptoms Throat: Reports No symptoms Cardiovascular: Reports No symptoms Respiratory: Reports No symptoms Gastrointestinal: Reports No symptoms Genitourinary: Reports No Symptoms Musculoskeletal: Reports Other (hip pain) Endocrine: Reports No symptoms Hematology: Reports No symptoms Immunology: Reports No symptoms Neurological: Reports No symptoms Psychiatric: Reports No symptoms Physical Examination Appearance: Positive No Apparent Distress, Alert and Oriented x3 and Obese Head: Positive Normocephalic Eyes: Positive GEORGE ENT: Positive Ears Normal and Oropharynx Normal Neck: Positive Supple and Non-Tender Heart: Positive RRR and No Murmurs Respiratory: Positive Airway patent, Breath Sounds Clear, Bilaterally, Breath Sounds Equal and Respirations Nonlabored GI/: Positive Soft, Nontender, Bowel sounds normal and No Distention Extremities: Positive Pedal Pulses Palpable Bilaterally and Other (tenderness on palpation to R hip) Neurological: Positive Sensation Intact, Motor Intact, Reflexes Intact, Alert and Oriented Vital Signs (Last 4 Hours) Vital Signs Last 4 Hours: Vital Signs: Last 4 Hours 11/29/23 05:30 11/29/23 06:00 11/29/23 06:00 Temperature 98.2 F Temperature Source Tympanic Pulse Rate 67 Respiratory Rate 17 Blood Pressure 152/76 H Blood Pressure Mean 101 Blood Pressure Location Right Arm Blood Pressure Position Supine O2 Sat by Pulse Oximetry 98 Oxygen Delivery Method Nasal Cannula Nasal Cannula Nasal Cannula Oxygen Flow Rate 3 11/29/23 07:00 11/29/23 08:00 11/29/23 08:00 Temperature Temperature Source Pulse Rate Respiratory Rate Blood Pressure Blood Pressure Mean Blood Pressure Location Blood Pressure Position O2 Sat by Pulse Oximetry Oxygen Delivery Method Nasal Cannula Nasal Cannula Nasal Cannula Oxygen Flow Rate 3 11/29/23 09:00 Temperature Temperature Source Pulse Rate Respiratory Rate Blood Pressure Blood Pressure Mean Blood Pressure Location Blood Pressure Position O2 Sat by Pulse Oximetry Oxygen Delivery Method Nasal Cannula Oxygen Flow Rate Labs This Visit Labs This Visit: Labs This Visit 11/28/23 11/28/23 11/28/23 21:24 21:25 21:52 WBC 15.17 H RBC 3.91 L Hgb 11.3 L Hct 36.9 L MCV 94.4 MCH 28.9 MCHC 30.6 L RDW Coeff of Guzman 13.5 Plt Count 257 Immature Gran % (Auto) 0.6 Neut % (Auto) 83.4 H Lymph % (Auto) 10.1 [place] % (Auto) 5.3 Eos % (Auto) 0.3 Baso % (Auto) 0.3 Neut # (Auto) 12.7 H Lymph # (Auto) 1.5 [place] # (Auto) 0.8 Eos # (Auto) 0.1 Baso # (Auto) 0.0 Immature Gran # (Auto) 0.1 Sodium 140.0 Potassium 4.21 Chloride 102.0 Carbon Dioxide 33.7 H Anion Gap 8.51 BUN 29.7 H Creatinine 1.08 Estimated GFR (MDRD) 50.00 BUN/Creatinine Ratio 27.50 Glucose 130.0 H Calcium 9.11 Total Bilirubin 0.59 AST 46.9 H ALT 18.1 Alkaline Phosphatase 143.3 H Total Protein 7.61 Albumin 4.24 Globulin 3.37 Albumin/Globulin Ratio 1.25 Urine Color Yellow Urine Clarity Clear Urine pH 7.0 Ur Specific [place] 1.020 Urine Protein Trace H Urine Glucose (UA) Negative Urine Ketones Negative Urine Blood Negative Urine Nitrite Negative Urine Bilirubin Negative Urine Urobilinogen 2.0 H Ur Leukocyte Esterase Trace H Urine Microscopic RBC 2-5 Urine Microscopic WBC 2-5 Ur Squamous Epith Cells 0-2 Urine Bacteria Trace SARS CoV-2 RNA Rapid ADRIANA Negative 11/29/23 04:54 WBC 10.83 H RBC 3.34 L Hgb 9.7 L Hct 31.4 L MCV 94.0 MCH 29.0 MCHC 30.9 L RDW Coeff of Guzman 13.7 Plt Count 209 Immature Gran % (Auto) 0.4 Neut % (Auto) 73.4 Lymph % (Auto) 16.9 [place] % (Auto) 8.8 Eos % (Auto) 0.3 Baso % (Auto) 0.2 Neut # (Auto) 8.0 H Lymph # (Auto) 1.8 [place] # (Auto) 1.0 Eos # (Auto) 0.0 Baso # (Auto) 0.0 Immature Gran # (Auto) 0.0 Sodium 138.2 Potassium 4.12 Chloride 100.3 Carbon Dioxide 34.0 H Anion Gap 8.02 BUN 29.3 H Creatinine 0.89 Estimated GFR (MDRD) 62.00 BUN/Creatinine Ratio 32.92 Glucose 112.3 H Calcium 8.79 Total Bilirubin 0.51 AST 31.9 ALT 16.6 Alkaline Phosphatase 103.0 D Total Protein 6.39 Albumin 3.50 Globulin 2.89 Albumin/Globulin Ratio 1.21 Urine Color Urine Clarity Urine pH Ur Specific [place] Urine Protein Urine Glucose (UA) Urine Ketones Urine Blood Urine Nitrite Urine Bilirubin Urine Urobilinogen Ur Leukocyte Esterase Urine Microscopic RBC Urine Microscopic WBC Ur Squamous Epith Cells Urine Bacteria SARS CoV-2 RNA Rapid ADRIANA Imaging Imaging: EXAM: CT PELVIS FINDINGS: Bilateral total hip arthroplasty. The prosthetic units lead to artifact limiting image quality. There is cortical discontinuity of the upper lateral femur concerning for an acute fracture. The femoral prosthetic component remains in place without dislodgement as does the acetabular component. No clear evidence of the acetabular or pubic bone fracture. No acute upper left femoral abnormality. Sacroiliac joints are intact. There is no muscular or peripheral soft tissue hematoma seen. Intrapelvic structures are within normal limits. No ascites. IMPRESSION: 1. Bilateral total hip arthroplasty. The prosthetic units lead to artifact limiting image quality. 2. There is cortical discontinuity of the upper lateral femur concerning for an acute fracture. The femoral prosthetic component remains in place without dislodgement as does the acetabular component. 3. No additional fractures suggested. 4. No hematoma identified. EXAM: CT HEAD WITHOUT CONTRAST FINDINGS: No evidence of acute infarction, hemorrhage, or mass. Mild brain volume loss. Mild chronic microvascular changes of the white matter. Atherosclerotic calcifications of the carotid siphons and vertebral arteries. No brain herniation. Patent basilar cisterns. Ventricles are proportional to brain volume. No acute osseous abnormality. Seven of the right maxillary sinus with sinusitis including mucoperiosteal thickening/sclerosis and partial atelectasis. Bilateral lens replacements of the globes. IMPRESSION: No acute intracranial abnormality. Chronic and sinus findings as above. EXAM: CT LUMBAR SPINE FINDINGS: Bones appear demineralized. No fracture is identified. Vertebral body heights are normal and there is no spondylolisthesis. Sacroiliac joints are intact with mild to moderate arthritis. There is diffuse degenerative disc and facet disease becoming at least moderate in degree in the lower lumbar spine and lumbosacral junction and there is at least mild central canal and bilateral neural foraminal narrowing. Incidental note of a small chronic appearing right pleural effusion with adjacent consolidation likely related atelectasis. Atherosclerotic disease IMPRESSION: 1. No acute osseous abnormality of the lumbar spine. 2. Degenerative changes. 3. Small chronic appearing right pleural effusio Review Review Statement: I have independently reviewed and interpreted the labs/EKGs/imaging that were ordered by the ER provider. I have reviewed all outside records that are available currently in our EMR including imaging/notes/labs from previous visits. Plan Reccomendations/Plan: 1. Acute Right femur fracture - morphine 2 mg Q6H prn for pain, norco 5/325 Q6H prn for pain, follow-up with Dr. Rdz outpatient at [facility], partial weight bearing, and needs home health, walker, and bedside commode due to impaired mobility secondary to this diagnosis. No changes to chronic condition medications. Observed overnight for pain control and assistance with resources upon discharge. Additional Planning: Case discussed with ED Physician, Dr. Conn. DVT Prophylaxis: Plavix Disposition: Admit to: Med/surg Observation Discussed Plan of Care with Dr. Gregoria Berg. If patient discharged with Left Ventricular Systolic Dysfunction: NA Discharged with a beta clayton? [] If no, why not? [] Discharged with an jerardo/arb? [] If no, why not? [] DX: R FEMUR FRACTURE RX: NORCO 5/325 TAKE 1-2 EVERY 6 HOURS NEEDED FOR PAIN DIABETIC DIET PARTIAL WEIGHT BEARING TO RIGHT HIP HOME HEALTH PT/OT FOLLOW-UP WITH PCP NEXT WEEK ORTHO SCHEDULED Review With Patient Reviewed with Patient and Family: Patient and family have been counseled on condition and care plan and have no immediate questions. I have personally discussed and reviewed the patient's visit/current labs/imaging/decision making with Dr. Rd Berg, my supervising attending. Total number of minutes spent with patient 85 min. More than 50% of the time spent with this patient was devoted to counseling and coordination of care. Time of Admission:11/28/23 23:02 Time of Discharge: 11/28/23 0935 Discharge Plan Discharge Discharge Orders: Discharge Patient (ONCE); Ordered 11/29/23 Ordered By: MANDO DEAN Activity Restrictions/Additional Instructions: Diabetic Diet Partial weight bearing to R leg until instructed otherwise by orthopedics Home health PT/OT Follow-up with PCP next week Ortho as scheduled Medications: [place]uelot 5/325 take 1-2 every 6 hours as needed for pain Instructions: Leg Fracture (GEN) Patient Disposition: HOME WITH FAMILY CARE Prescriptions: New hydrocodone-acetaminophen 5-325 mg Tablet 1 - 2 tab PO Q6HR PRN (Reason: pain) Qty: 30 0RF Continued carvedilol [Coreg] 6.25 MG tablet 12.5 mg PO BID losartan 100 MG tablet 100 mg PO BEDTIME gabapentin 300 mg capsule 300 mg PO DAILY atorvastatin 20 mg tablet 20 mg PO BEDTIME Januvia 100 mg tablet 100 mg PO DAILYWM potassium chloride 10 mEq tablet,ER particles/crystals 10 meq PO BEDTIME cetirizine 10 mg tablet 10 mg PO BEDTIME omeprazole 20 mg capsule,delayed release(DR/EC) 20 mg PO DAILY hydrochlorothiazide 25 mg tablet 25 mg PO BEDTIME metformin 850 mg Tablet 850 mg PO BID diltiazem HCl 300 mg Capsule,Extended Release 24 Hr 300 mg PO DAILY clopidogrel 75 mg tablet 75 mg PO DAILY famotidine 20 mg tablet 20 mg PO DAILY furosemide 20 mg tablet 20 mg PO DAILY Did you review [place] CLIENT EVALUATOR for ALL controlled substances?: Yes Discussed opioids are addictive and Narcan is available by prescription or from pharmacy.: Yes Condition: Stable
[2023-11-29] MEDS ORDERED: COREG PO SCH (09:30)
[2023-11-29] MEDS: CARDIZEM CD PO SCH ×2 (10:12→10:15)
[2023-11-29] MEDS: NEURONTIN PO SCH (10:13)
[2023-11-29] MEDS: JANUVIA PO SCH (10:13)
[2023-11-29] MEDS: LASIX TAB PO SCH (10:13)
[2023-11-29] MEDS: PEPCID PO SCH (10:13)
[2023-11-29] MEDS: PRILOSEC PO SCH (10:13)
[2023-11-29] MEDS: COREG PO SCH (10:13)
[2023-11-29] MEDS: PLAVIX PO SCH (10:15)
[2023-11-29 14:24] VITALS: BP 128/45; PULSE 54; RESP 16; TEMP 98.7
[2023-11-29] MEDS ORDERED: CLARITIN PO SCH (21:00)
[2023-11-29] MEDS ORDERED: HYDROCHLOROTHIAZIDE PO SCH (21:00)
[2023-11-29] MEDS ORDERED: COZAAR PO SCH (21:00)
[2023-11-29] MEDS ORDERED: LIPITOR PO SCH (21:00)
== END 2023-11-29 17:35 | disposition home or self-care (01) ==
LOC: ED 18:53 → MEDSURG B 18:53
PROVIDERS: ADMIT Hospitalist; ATTEND Nurse Practitioner Family